=== PATIENT | male | born 1930 | race Caucasian/White ===

== ENCOUNTER 2017-03-30 10:21 | Inpatient (IN) | payer MEDICARE ==
[~2017-03-30] VITALS: Ht 182.9 cm; Wt 72.4 kg
[2017-03-30] VITALS (7 sets, daily range): BP systolic 146–189; BP diastolic 58–83; PULSE 59–70; RESP 13–16; O2SAT 96–100
--- NOTE | 2017-03-30 10:36 | ED.REPORT ---
HPI-Stroke / CVA Mar 30, 2017 ED Provider: Aga Fierro MD The pt is a 86 y/o male w/ a hx of alcoholism presenting to the ED via EMS due to a CVA. Per the daughter, the last known normal was last night. She states that he is usually walking and talking normally but experiences difficulty speaking after drinking boxed wine. The pt is experiencing word salad currently. Nursing Notes Stated Complaint: ROLL OUT CVA Chief Complaint: CVA Nursing Notes Reviewed: Yes Allergies: Coded Allergies: No Known Allergies (Unverified , 03/30/17) General Time Seen by Provider: 11:45 Chief Complaint Unable to speak ("Word salad") Hx Obtained From: Patient, Daughter Arrived By: Ambulance Time last known well "Last night" Sudden in Onset?: Yes Symptom Duration: Since onset Progression Since Onset: Constant Risk Factors TPA was considered but the pt was outside of the time frame )( TPA Administration/Criteria Stroke Thrombolytic Therapy : TPA Considered: Yes (awoke with symptoms. NIHSS scale at 3. Does not meet inclusion criteria. Discussed with pt and his daughter) TPA Administered Intravenously: No, exclusion criteria NIH Stroke Scale Level of Consciousness: Alert and responsive (0) Ask Month & Age: Both questions right (0) Open/Close Eyes/Hand Vamper: Performs both tasks (0) Horizontal EO Movements: None (0) Visual Mclain: No visual loss (0) Facial Palsy: Normal symmetry (0) Right Arm Motor Drift (10s): No drift 10 sec (0) Left Arm Motor Drift (10s): No drift 10 sec (0) Right Leg Motor Drift (5s): No drift 5 sec (0) Left Leg Motor Drift (5s): No drift 5 sec (0) Limb Ataxia FNF/Heel-Fuentes: Ataxia in 1 limb (1) Sensation (Arms/Legs/Face): No sensory loss (0) Language Aphasia: Severe, fragmented (2) Dysarthria: No dysarthria, normal (0) Extinction/Inattention: No exctinct/inattent (0) NIHSS Score: 3 Time NIHSS Performed: 13:02 Date NIHSS Performed: Mar 30, 2017 Past Medical History Past Medical History None reported daughter concerned with ETOH. significantly limited in last weeks since moving in with her Past Surgical History L hip replacement Smoking History Unknown if Ever Smoker Social History Hx of Alcoholism Review of Systems Neurologic: Reports: Unable to speak ("Word salad" ) Complete sys rev & neg: except as marked. Physical Exam Initial Vital Signs Vital Signs (First) Date Time Temp Pulse Resp B/P Pulse Ox O2 Delivery O2 Flow Rate FiO2 03/30/17 10:25 36.6 69 16 159/64 100 Room Air Initial VS: Reviewed General/Constitutional: Awake, Alert Head / Eyes: Atraumatic, Normocephalic Neck: Atraumatic, Supple, Full range of motion Respiratory / Chest: Atraumatic, Breath sounds NL, Breath sounds = bilat Cardiovascular: Heart rate NL, Regular rhythm, Heart sounds NL Speech: Positive: Expressive aphasia (Dense ), Receptive aphasia (Slight ) Tongue deviates slightly to the R and pt is able to stick tongue out The pt experiences difficutly placing finger to nose ENT: Airway patent, Mucous membranes moist Skin: No rash, Warm, Dry, Intact Interpretation & Diagnostics Lab Results Interpretation Result Diagram: 03/30/17 1045 03/30/17 1106 Test 03/30/17 10:45 03/30/17 11:06 03/30/17 11:12 03/30/17 13:38 White Blood Count 7.3th/mm3 (3.8-10.1) Red Blood Count 4.41mil/mm3 (4.40-5.80) Hemoglobin 14.0g/dL (13.8-17.2) Hematocrit 41.7% (41.0-50.0) Mean Corpuscular Volume 94.6fL (81-100) Mean Corpuscular Hemoglobin 31.7pg (27.0-35.0) Mean Corpuscular Hemoglobin Concent 33.6% (32.0-37.0) Red Cell Distribution Width 12.5% (12.3-15.4) Platelet Count 237bil/L (150-400) Neutrophils (%) (Auto) 70.7% (40-74) Lymphocytes (%) (Auto) 17.8% (14-46) Monocytes (%) (Auto) 9.5% (4-12) Eosinophils (%) (Auto) 1.4% (0-5) Basophils (%) (Auto) 0.3% (0-3) Prothrombin Time 10.5sec (8.1-12.5) Prothromb Time International Ratio 0.98ratio Sodium Level 142mEq/L (134-144) Potassium Level 4.5mEq/L (3.5-5.2) Chloride Level 104mEq/L (97-108) Carbon Dioxide Level 26mmol/L (18-29) Blood Urea Nitrogen 17mg/dL (8-27) Creatinine 1.08mg/dL (0.76-1.27) Estimat Glomerular Filtration Rate 69mL/min (>59) Glucose Level 121mg/dL (60-99) Calcium Level 9.4mg/dL (8.5-10.1) Total Bilirubin 0.5mg/dL (0.0-1.2) Aspartate Amino Transf (AST/SGOT) 18U/L (0-50) Alanine Aminotransferase (ALT/SGPT) 15U/L (0-44) Alkaline Phosphatase 57U/L (25-160) Total Protein 6.0g/dL (6.4-8.4) Albumin 4.0g/dL (3.4-5.0) Hold Urine Received (Received) Hold [place] Top Tube Received (Received) CT Head Interpretation IMPRESSION: 1. No acute intracranial process. 2. Moderate atrophy and chronic microvascular ischemic changes. Dictated by: Kita Desai M.D. on 03/30/2017 at 10:08 Approved by: Kita Desai M.D. on 03/30/2017 at 10:12 Study: Head CT no contrast Interpretation / Wet Read by: Interpret - Radiologist Re-Eval/Medical Decision Med Decision/Clinical Course 86-year-old gentleman who woke up with severe word salad this morning. Source of Hx: Old records Consultation : Call Returned at: 13:47 Table Hand: Will see patient, Agrees with plan Note: Seen by Resident. Will go to [place] team. Counseled Regarding: Diagnosis, Lab results, Need for admission Patient Discharge & Departure Impression: Primary Impression: CVA (cerebral vascular accident) CVA mechanism: unspecified Qualified Code: I63.9 - Cerebral infarction, unspecified Disposition: ADMITTED TO HOSPITAL Discharge Condition All VS Reviewed: Yes Condition: Stable Referrals: [facility] Scribe Attestation Portions of this note were transcribed by Remington An. I, Dr. Fierro personally performed the history, physical exam and medical decision-making; I reviewed and confirmed the accuracy of the information in the transcribed note. copies to: [facility] Aga Fierro MD Mar 30, 2017 10:36 Remington An Mar 30, 2017 12:51
--- NOTE | 2017-03-30 11:13 | DRSVH ---
PROCEDURE: CT BRAIN WITHOUT CONTRAST ([id number]) INDICATIONS: Stroke TECHNIQUE: Noncontrast 4.5 mm thick angled axial sections acquired from the foramen magnum to the vertex, with c oronal reformats. COMPARISON: None. FINDINGS: Image quality: Excellent. CSF spaces: Basal cisterns are patent. No extra-axial fluid collections. The ventricles are symmet eduardo in size and shape. Brain: No intracranial bleeds or masses. There is cerebral volume loss for age, with resultant vent ricular and sulcal prominence. There are periventricular and deep white matter chronic small vessel ischemic changes. There is intracranial internal carotid artery atherosclerosis. Skull and face: Calvarium and visualized facial bones appear intact, without suspicious lesions. Sinuses: Visualized sinuses and mastoids are clear. IMPRESSION: 1. No acute intracranial process. 2. Moderate atrophy and chronic microvascular ischemic changes. Dictated by: Kita Desai M.D. on 03/30/2017 at 10:08 Approved by: Kita Desai M.D. on 03/30/2017 at 10:12
[2017-03-30 11:18] LABS: BASOPHILS % (AUTO) 0.3 % (0-3); EOSINOPHILS % (AUTO) 1.4 % (0-5); MONOCYTES % (AUTO) 9.5 % (4-12); Mean Corpuscular Hemoglobin 31.7 pg (27.0-35.0); Mean Corpuscular Volume 94.6 fL (81-100); NEUTROPHILS % (AUTO) 70.7 % (40-74); Platelet Count 237 bil/L (150-400)
[2017-03-30 11:29] LABS: INR 0.98 ratio
[2017-03-30] MEDS ORDERED: Polyethylene Glycol (PEG) 17 Gm Powder PO PRN (13:50)
[2017-03-30] MEDS ORDERED: Alum-Mag Hydrox-Simeth 30 mL Suspension PO PRN (13:50)
[2017-03-30] MEDS ORDERED: Ondansetron 2 mg/mL 2 mL Inj IVPUSH PRN (13:50)
--- NOTE | 2017-03-30 14:30 | NUR ---
[place] [facility] [place] received from Stephanie Zamorano RN in ED. Pt brought up to floor via gurney, slide transferred to bed. Pt able to answer some simple questions and state name, but confused, has attempted to get out of bed but able to redirect. No s/sx of distress, admission completed by admit nurse. Providing 1:1 observation until pt assembler insulator arrives.
[2017-03-30] MEDS ORDERED: Thiamine Inj 200 MG in Dextrose 5% 50 ML IV ONE (14:35)
[2017-03-30 14:39] LABS: APPEARANCE,URINE CLEAR (CLEAR,HAZY); COLOR,URINE YELLOW (YELLOW); OCCULT BLOOD,URINE NEGATIVE (NEGATIVE); PH,URINE 5.5 (5.0-8.0); UROBILINOGEN,URINE NORMAL (NORMAL)
[2017-03-30] MEDS ORDERED: MELA1TAB16 PO (14:48)
[2017-03-30] MEDS ORDERED: TRAZ150T72 PO (14:48)
--- NOTE | 2017-03-30 15:00 | NUR ---
Pt telesales advisor arrived on floor around 15:00
[2017-03-30] MEDS ORDERED: MULT-666 PO (15:01)
[2017-03-30] MEDS ORDERED: OMEG-38 PO (15:01)
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
[2017-03-30] MEDS ORDERED: Labetalol 5 mg/mL 4 mL Inj IVPUSH PRN ×2 (15:25→15:35)
--- NOTE | 2017-03-30 15:51 | NUR ---
Evaluation completed. Please go to "Notes" then click on "Assessments and Notes" (bottom left corner of screen). Then select appropriate discipline tab on top of screen.
[2017-03-30] MEDS ORDERED: LORazepam 0.5 mg Tablet PO PRN (16:30)
[2017-03-30] MEDS: Heparin 5,000 Unit/mL Inj SUBQ SCH (17:34)
--- NOTE | 2017-03-30 18:06 | DRSVH ---
[facility] [address] [place] [address] Echocardiogram Report Name: STEPHIE HUDSON Study Date: 03/30/2017 Height: 70 in Hospital Exam Location: [facility] Weight: 164 lb Gender: Male BSA: 1.9 m2 : 1930 Age: 86 yrs BP: 146/60 mmHg Reason For Study: CVA Ordering Physician: Performed By: Madi Stone Referring Physician: JACLYN BARRIOS Interpretation Summary The left ventricle is normal in size. The ejection fraction is estimated to be 65-70%. There is no LV thrombus. The right ventricle is grossly normal size. The right ventricular systolic function is normal. There is mild mitral regurgitation. The aortic valve is mildly calcified. Leaflet mobility is mildly reduced. There is no hemodynamically significant valvular aortic stenosis.There is mild aortic regurgitation. The ascending aorta is moderately enlarged (4.3 cm in diameter). The aortic arch is mild to moderately enlarged. Procedure: A two-dimensional transthoracic echocardiogram with color flow and Doppler was performed. The study quality was technically adequate. There is no prior echocardiogram noted for this patient. The patient was in normal sinus rhythm during the exam. Left Ventricle: The left ventricle is normal in size. There is mild concentric left ventricular hypertrophy. Proximal septal thickening is noted. There is no echo evidence for significant left ventricular outflow tract obstruction. There is no thrombus. The ejection fraction is estimated to be 65-70%. There are no focal wall motion abnormalities. Assessment of diastolic parameters indicates a relaxation abnormality of the left ventricle, consistent with normal filling pressures. Right Ventricle: The right ventricle is grossly normal size. The right ventricular systolic function is normal. Atria: The left atrium grossly appears normal in size. The right atrium grossly appears normal in size. The interatrial septum is intact with no evidence for an atrial septal defect. Mitral Valve: The mitral valve leaflets are slightly calcified. There is mild mitral annular calcification. There is mild mitral regurgitation. Aortic Valve: The aortic valve is trileaflet. The aortic valve is mildly calcified. There is discrete nodular thickening of the non- coronary cusp. Leaflet mobility is mildly reduced. There is no hemodynamically significant valvular aortic stenosis. There is mild aortic regurgitation. Tricuspid Valve: The tricuspid valve is not well visualized, but is grossly normal. Pulmonary artery pressures cannot be estimated because of the lack of a measurable TR jet velocity. There is trace tricuspid regurgitation. Pulmonic Valve: The pulmonic valve is not well seen, but is grossly normal. There is trace pulmonic regurgitation. Great Vessels: The aortic root is mildly dilated. The ascending aorta is moderately enlarged. The aortic arch is moderately enlarged. The pulmonary artery is normal size. The IVC is of normal diameter and collapses greater than 50% with a sniff. This suggests a low right atrial pressure of 3 mm Hg. Pericardium/ Pleura There is no pericardial effusion. There is no pleural effusion. MMode/2D Measurements & Calculations LVIDd LVOT diam: 2.0 cm LV tejada. diameter/BSA LV sys. diameter/BSA : 4.4 cm AoV Openin.1 cm (cm/m^2): 2.3 (cm/m^2): 1.3 LVIDs Ao root diam: 3.9 cm : 2.5 cm asc Aorta Diam FS : 43.% Ao Arch Diam (Prox IVSd Trans): 2.8 cm : 1.cm LVPWd : 1.0 cm Doppler Measurements & Calculations Ao V2 max: 136.9 cm/secMV E max per MV E/A: 0.75 PA V2 max Ao max P.5 mmHg : 55.0 cm/sec Med Peak E' Per : 112.9 cm/sec Ao mean P.4 mmHg MV A max per PA mean PG LVOT Max Per : 73.7 cm/sec E/E' med: 9.7 : 3.2 mmHg : 107.0 cm/sec Lat Peak E' Per NATTY(I,D): 2.6 cm E/E' lat: 8.2 sev ratio: 0.84 E/e' average: 9.0 MV dec time: 0.27 sec Ao V2 mean LV V1 max PG PA V2 mean : 100.8 cm/sec : 86.7 cm/sec Ao V2 VTI: 28.8 cmLV V1 VTI: 24.1 cm NATTY(V,D): 2.5 cm2 NATTY indexed to BSA (cm^2/m^2): 1.4 Reading Physician:YONATHAN
--- NOTE | 2017-03-30 18:24 | NUR ---
Pt off floor for MRI
--- NOTE | 2017-03-30 19:56 | DRSVH ---
PROCEDURE: MRI BRAIN WITHOUT CONTRAST ([id number]) INDICATIONS: cva TECHNIQUE: Non-contrast axial T1 spin echo, axial T2 fast spin echo, sagittal and axial FLAIR, coronal T2 fast s pin echo, axial gradient echo, axial diffusion and ADC through the brain. COMPARISON: [facility], MR, MR ANGIO HEAD WO [facility], 03/30/2017, 18:19. [facility], CT, CT BRAIN WO [facility], 03/30/2017, 10:52. FINDINGS: Image quality: Significantly degraded by persistent patient motion during image acquisition. CSF spaces: Ventricles appear symmetric in size and shape. Basal cisterns are patent. No extra-axi al fluid collections. Brain: No intracranial bleeds or mass effects. There is cerebral volume loss for age. There are pe riventricular and deep white matter chronic small vessel ischemic changes. Brainstem appears normal. Diffusion-weighted images show no acute ischemic insults. No chronic ischemic insults. Normal int ravascular flow voids are present. Skull and face: Calvarial bone marrow is normal in signal. Orbits are normal. Sinuses: Sinuses and mastoids are clear. IMPRESSION: Moderate brain parenchymal atrophy, quality of visualization is quite limited by persist ent patient motion during image acquisition. No stroke found, no mass seen, no obstructive hydroceph alus suspected. Dictated by: Dong Garcia M.D. on 03/30/2017 at 19:53 Approved by: Dong Garcia M.D. on 03/30/2017 at 19:54
--- NOTE | 2017-03-30 19:57 | DRSVH ---
PROCEDURE: MRA ANGIOGRAM HEAD WITHOUT CONTRAST ([id number]) INDICATIONS: CVA TECHNIQUE: Noncontrast axial 3-D [id number] MR angiogram, with 3-dimensional maximum intensity projection (M IP) reformats of the internal carotid arteries and posterior circulation then performed. COMPARISON: [facility], MR, MR BRAIN WO CON, 03/30/2017, 18:19. [facility], CT, CT BRAIN WO CON, 03/30/2017, 10:52. FINDINGS: Image quality: Quality of visualization is significantly degraded by persistent patient motion durin g image acquisition. Anterior circulation: Intracranial internal carotid arteries demonstrate normal size and intralumina l flow signal. The flow within the paired anterior cerebral arteries is normal and symmetric. The f low within the middle cerebral arteries is normal and symmetric. The anterior communicating artery i s seen. No stenoses, occlusions, or aneurysms. Posterior circulation: Visualized portions of the vertebral arteries demonstrate normal caliber, and join to form a normal appearing basilar artery. The flow within the posterior cerebral arteries is normal and symmetric. No stenoses, occlusions, or aneurysms. IMPRESSION: Patient motion degrades quality of visualization but within the constraints of this stud y no definite acute disease is found. Dictated by: Dong Garcia M.D. on 03/30/2017 at 19:54 Approved by: Dong Garcia M.D. on 03/30/2017 at 19:55
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
[2017-03-31] VITALS (8 sets, daily range): BP systolic 145–187; BP diastolic 56–86; PULSE 51–76; RESP 16; O2SAT 94–98
--- NOTE | 2017-03-31 00:21 | NUR ---
Non-Violent Restraints / POA On return from MRI patient incontinent and attempting to climb out of bed during brief change. Attempts to orient to place unsuccessful however able to state name and date of . Some responses to questions were unintelligible and attempts to calm by family and staff unsuccessful. Two GM VIDEO's and daughter required to restrain and keep in bed during linen change and daughter accepting of placing 2 point soft restraints. Notified MD and received order for 2 point soft wrist restraints, sitter in room to keep patient from self harm. Seizure pads in place. Daughter presented documentation as primary POA, a copy was made and given to charge nurse at 's desk.
[2017-03-31] MEDS: Heparin 5,000 Unit/mL Inj SUBQ SCH ×3 (00:30→16:08)
[2017-03-31] MEDS: Multivit-Miner-Folic Acid-Iron Tablet PO SCH (07:47)
[2017-03-31] MEDS: Thiamine Inj 100 MG in Dextrose 5% 50 ML IV SCH (07:47)
--- NOTE | 2017-03-31 17:22 | NUR ---
Social Work: Brief Note Data: Pt is on day 1 of hospitalization. EMR reviewed, pt discussed in multidisciplinary rounds. Pt has hx of alcohol use and was in restraints and had a sitter this AM. Pt continues to have a sitter. MECHANICAL LEAD met with pt and granddaughter at bedside. Pt states his name and birthday correctly, is unaware of which hospital he is at, and states it is 1999. Pt then began to talk about wanting to go back to the [place] where he used to live, and pt's granddaughter shook her head no at MECHANICAL LEAD. Pt states his daughter Sabina is a good support person to contact if needed, phone number is [phone]. MECHANICAL LEAD will attempt to call pt's daughter to complete assessment and will follow up with pt once more clear. PT recommending HH with 24/7 caregiving at this time. MECHANICAL LEAD will continue to follow. Assessment: Pt who is independent at baseline, alcohol use. Plan: MECHANICAL LEAD will attempt to call pt's daughter to complete assessment and will follow up with pt once more clear. PT recommending HH with 24/7 caregiving at this time. MECHANICAL LEAD will continue to follow. PANCHO Cantu
--- NOTE | 2017-03-31 17:38 | NUR ---
Mentation Confusion and word salad continue. Following conversation better as well as following commands. Sitter remains at bedside this shift.
--- NOTE | 2017-03-31 19:10 | NUR ---
KANDACE explained to pt's daughter Sabina who is at bedside. Copy of KANDACE given to aSbina after she had signed it.
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
[2017-04-01] VITALS (10 sets, daily range): BP systolic 149–192; BP diastolic 64–88; PULSE 54–140; RESP 16–18; O2SAT 95–100
[2017-04-01] MEDS: Heparin 5,000 Unit/mL Inj SUBQ SCH ×3 (00:59→16:01)
[2017-04-01] MEDS ORDERED: Nitroglycerin 2% 1 Gm Ointment TOPICAL ONE (05:05)
--- NOTE | 2017-04-01 06:21 | NUR ---
NOC PT remains confused. Oriented only to self. PT continues to remain aphasic and does some word searching. Otherwise, neuro intact. PT ambulates to bathroom with supervision. PT is also incontinent of urine at times. PT b/p has been elevated this shift with a max of 191/80. Amlodipine was given earlier with no effect and then nitro paste applied and decreased b/p into the 150's. PT asymptomatic. NO CP. HR sinus desiree to sinus rhythm. Psyche consult ordered. Nicotine patch applied. Will CTM b/p at this time. Sitter present at bedside. PT has made minimal attempts to get OOB and xaviery sitter can be d/c today.
--- NOTE | 2017-04-01 07:20 | NUR ---
DC sitter Patient had a sitter at bedside throughout the night. Patient was cooperative throughout the night. Nurse discontinued sitter at 0720 on 04/01/17. Morris alarm placed on bed and turned on.
[2017-04-01] MEDS: Multivit-Miner-Folic Acid-Iron Tablet PO SCH (08:44)
[2017-04-01] MEDS: Thiamine Inj 100 MG in Dextrose 5% 50 ML IV SCH (09:20)
--- NOTE | 2017-04-01 13:43 | NUR ---
A-Flutter Patient on telemetry. Per groundwater monitoring technician patient heart rate increased to 120's to 140's and has converted to A-Flutter. notified.
--- NOTE | 2017-04-01 14:29 | NUR ---
Physical Therapy: Patient has met all PT goals and will be released to nursing for continued ambulation with FWW and SBA as tolerated 2-3 times per day.
--- NOTE | 2017-04-01 15:30 | PCM.PNMED ---
Subjective Date of Service Apr 01, 2017 Subjective Patient is seen and examined. He continues to go off tangent occasionally but fairly interactive. Once again, his daughter Sabina visited and he became more agitated. Afib w/ RVR at 140 HR is reported by tele around noon. He is clearly refusing to go home with her. He will need placement. Exam Vital Signs Vital Sign - Last Date Time Temp Pulse Resp B/P Pulse Ox O2 Delivery O2 Flow Rate FiO2 04/01/17 14:04 36.8 105 16 165/64 97 Room Air Intake and Output 03/31/17 03/31/17 04/01/17 Cumulative From/Thru 15:00 23:00 07:00 03/30/17 10:25 - 04/01/17 06:39 Intake Total 70 ml 860 ml 439 ml 1512 ml Output Total 400 ml 1300 ml Balance 70 ml 860 ml 39 ml 212 ml Intake Oral 860 ml 439 ml 1399 ml IV Total 70 ml 113 ml Output Urine Total 400 ml 1300 ml # Voids 6 4 17 # Bowel Movements 2 4 Exam General: Calm until daughter Sabina came HEENT: no teeth Heart: Tachycardic, irregular rate Lungs: CTA, no crackles or wheezes Abd: Soft, non tendere Ext: no swelling MSK: walks with wide based gait Neuro: positive for nystagmus, wide based gait/ataxia. Still somewhat confused PSych: Mildly agitated upon seeing daughter IVs and Medications Medications Reviewed: Medications were reviewed in detail Lab and Diagnostics Result Diagram: 03/30/17 1045 03/30/17 1106 X-Rays, CTs and MRIs CT BRAIN WITHOUT CONTRAST IMPRESSION: 1. No acute intracranial process. 2. Moderate atrophy and chronic microvascular ischemic changes. Approved by: Kita Desai M.D. on 03/30/2017 at 10:12 MRA ANGIOGRAM HEAD WITHOUT CONTRAST IMPRESSION: Patient motion degrades quality of visualization but within the constraints of this study no definite acute disease is found. Approved by: Dong Garcia M.D. on 03/30/2017 at 19:55 MRI BRAIN WITHOUT CONTRAST IMPRESSION: Moderate brain parenchymal atrophy, quality of visualization is quite limited by persistent patient motion during image acquisition. No stroke found, no mass seen, no obstructive hydrocephalus suspected. Dictated by: Dong Garcia M.D. on 03/30/2017 at 19:53 Assessment & Plan Mr. Pedro Barrera is an 86 year old gentleman with a past medical history of Hypertension on no medications, recent alcoholism and presumed dementia presenting to the [facility] ED by way of EMS when daughter, Sabina noticed patient was displaying global expressive aphasia this morning. 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 Active. - Initially, TPA considered in the ED due to concern for a stroke, however event was out side of time frame. CT as above. - MR stroke protocol. Showed no concern for stroke - O2 on, titrate to 92% saturations. - EKG reviewed, NSR. Tele on . - 81 mg aspirin daily - pravastatin 10 mg QD based on lipid panel - A1c shows he is not a diabetic - NIH score of 3 on admission. Continue Q4H neuro checks, - Swallow screen ordered. Dysphagia diet with thin liquids are recommended PT evaluation ordered. - Echocardiogram is ordered and showed 65-70% ejection fraction, as well as lipid panel (chol= 172 triglycerides 86 LDL 106 HDL 48 and A1c 6.0. -Based on patient's cardiac risk profile, we will initiate pravastatin 10 mg daily at bedtime. 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 He agrees with vitamin infusions, we appreciate his time and recommendations - We will plan to give IV thiamine infusions per uptodate: "A recommended regimen is 500 mg of thiamine intravenously, infused over 30 minutes, three times daily for two consecutive days and 250 mg intravenously or intramuscularly once daily for an additional five days, in combination with other B vitamins Administration of glucose without thiamine can precipitate or worsen WE; thus, thiamine should be administered before glucose. Because gastrointestinal absorption of thiamine is erratic in alcoholic and malnourished patients, oral administration of thiamine is an unreliable initial treatment for WE. High-dose parenteral thiamine therapy is justified based on the failure of lower doses to produce clinical improvement in some patients with " -- Pharmacy is contacted regarding B complex vit, they are saying nephrovites are the only option. These will be ordered in addition to thiamine infusions. Recent history of Alcohol dependance. - Thiamine given. - CIWA protocol ordered. Valium for ciwa score of greater than 8 - Seizure protocol ordered. EEG is performed today, result is pending - CD assessment with Case management. Chronic conditions. Insomnia - Holding home trazodone and Melatonin. Hypertension, chronic unknown level of control -- Patient will be started on chlorthalidone 12.5 mg daily Acetaminophen for mild pain when necessary. Bowel regimen Senna and MiraLAX scheduled and PRN. Zofran when necessary for nausea and vomiting. SubQ heparin for now. SCDs in place. High-risk medications: NONE. Social: Daughter states she has DPOA paperwork which she will bring in, and would like to make out a POLST, with DNR/DNI designation. Patient uses a cane for walking. Patient Status: Patient is admitted under inpatient status with expected length of stay greater than 2 midnights due to severity of presenting symptoms, risk of adverse event, and complexity of treatment plan. I will obtain consult for placement as he is clearly not wanting to go home with Sabina VTE Mechanical Devices: Intermittant Pneumatic CD Resuscitation Status: DNR/DNI:Do Not Resuscitate/Intubate Time spent 35 min Ana Head DO Apr 01, 2017 15:30
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
--- NOTE | 2017-04-01 17:33 | CONS ---
[address] [address] CONSULTATION REPORT PATIENT: STEPHIE HUDSON : 1930 MR#: [id number] ADMIT: 03/30/2017 JOB ID: [id number] DATE OF SERVICE: 04/01/2017 CONTINUATION: In addition to high-dose thiamine, some studies have suggested supplemental magnesium 10-30 mEq per day, potassium 60-180 mEq per day, and phosphate 10 to 40 mmol per day. Magnesium is thought to be an important cofactor in thiamine dependent enzyme function especially involving carbohydrate metabolism and in the presence of hypomagnesemia the patient response may be limited despite receiving parental thiamine. I would also recommend multivitamin IV with continue monitoring for any fluid or electrolyte losses, although his lab work is otherwise unremarkable. I would recommend regular lab work to monitor electrolytes as well as renal function. In the [place] an intravenous high-potency solution is available, Pabrinex, the active ingredients of which are thiamine hydrochloride 250 mg, riboflavin 4 mg, pyridoxine hydrochloride 50 mg, ascorbic acid 500 mg, nicotinamide 160 mg, and anhydrous glucose 1 g; thiamine being vitamin B1, riboflavin vitamin B2, the pyridoxine being vitamin B6, ascorbic acid being vitamin C, and nicotinamide being vitamin B3.
--- NOTE | 2017-04-01 17:45 | NUR ---
Sitter Patient increasingly became restless. Patient continued to be impulsive and not understanding to use call light for assistance. Patient has river alarm on bed and patient continued to get up to bathroom by himself and not wait for assistance. Patient is unsteady on feet and a high fall risk. Patient was setting off River alarm every minute and sitter was placed at bedside for safety.
[2017-04-01] MEDS: Thiamine Inj 500 MG in Dextrose 5% 50 ML IV SCH (20:18)
[2017-04-02] VITALS (10 sets, daily range): BP systolic 134–183; BP diastolic 71–77; PULSE 61–82; RESP 16–18; O2SAT 96–98
[2017-04-02] MEDS: Heparin 5,000 Unit/mL Inj SUBQ SCH ×3 (00:31→15:45)
--- NOTE | 2017-04-02 06:41 | NUR ---
Activity Pt alert to self and location. Impulsive. Doesn't use call light. Appears confused when bed alarm goes off. Easily reoriented and distracted back to bed. 1:1 sitter provided.
[2017-04-02] MEDS: Multivit-Miner-Folic Acid-Iron Tablet PO SCH (07:54)
[2017-04-02] MEDS: Thiamine Inj 500 MG in Dextrose 5% 50 ML IV SCH ×3 (07:54→20:47)
[2017-04-02] MEDS: Vitamin B Complex/Vit C Tablet PO SCH (07:54)
[2017-04-02 08:45] LABS: Magnesium 1.9 mg/dL (1.6-2.6); Phosphorus 3.2 mg/dL (2.5-4.9)
--- NOTE | 2017-04-02 13:05 | NUR ---
Case Management: D: Phone signature for MARCE obtained from Daughter Sabina. Inpatient status effective yesterday, 04/01/17
--- NOTE | 2017-04-02 15:27 | NUR ---
Evaluation completed. Please go to "Notes" then click on "Assessments and Notes" (bottom left corner of screen). Then select appropriate discipline tab on top of screen.
--- NOTE | 2017-04-02 16:13 | NUR ---
Daily update Patient alert and confused. Patient requires SBA with FWW due to unsteady gait, but patient is impulsive and does not remember to press the call light for assistance. Patient does become agitated when carleen alarm, alarms. Patient has a sitter at bedside for safety. Patient is incontinent at times of urine, but will walk to toilet to void as well. Patient has had two bowel movements today that were formed. HR has stayed SR today. Bed locked with call light with in reach.
--- NOTE | 2017-04-02 16:50 | PCM.PNMED ---
Subjective Date of Service Apr 02, 2017 Subjective Patient is doing well with the one-on-one sitter. Staff mentioned that patient remains confused, had 2 bowel movements, no problems with urination. Exam Vital Signs Vital Sign - Last Date Time Temp Pulse Resp B/P Pulse Ox O2 Delivery O2 Flow Rate FiO2 04/02/17 16:12 37.0 63 16 146/74 96 Room Air Intake and Output 04/01/17 04/01/17 04/02/17 Cumulative From/Thru 15:00 23:00 07:00 03/30/17 10:25 - 04/02/17 06:17 Intake Total 1712 ml 236 ml 3460 ml Output Total 600 ml 325 ml 2225 ml Balance 1112 ml -89 ml 1235 ml Intake Oral 1510 ml 236 ml 3145 ml IV Total 202 ml 315 ml Output Urine Total 600 ml 325 ml 2225 ml # Voids 8 3 28 # Bowel Movements 0 4 Exam General: Calm HEENT: no teeth Heart: Regular rate and rhythm Lungs: CTA, no crackles or wheezes Abd: Soft, non tendere Ext: no swelling MSK: walks with wide based gait Neuro: Still somewhat confused PSych: Negative for anxiety and agitation Lab and Diagnostics Result Diagram: 03/30/17 1045 04/02/17 0720 X-Rays, CTs and MRIs CT BRAIN WITHOUT CONTRAST IMPRESSION: 1. No acute intracranial process. 2. Moderate atrophy and chronic microvascular ischemic changes. Approved by: Kita Desai M.D. on 03/30/2017 at 10:12 MRA ANGIOGRAM HEAD WITHOUT CONTRAST IMPRESSION: Patient motion degrades quality of visualization but within the constraints of this study no definite acute disease is found. Approved by: Dong Garcia M.D. on 03/30/2017 at 19:55 MRI BRAIN WITHOUT CONTRAST IMPRESSION: Moderate brain parenchymal atrophy, quality of visualization is quite limited by persistent patient motion during image acquisition. No stroke found, no mass seen, no obstructive hydrocephalus suspected. Dictated by: Dong Garcia M.D. on 03/30/2017 at 19:53 Assessment & Plan Mr. Pedro Barrera is an 86 year old gentleman with a past medical history of Hypertension on no medications, recent alcoholism and presumed dementia presenting to the [facility] ED by way of EMS when daughter, Sabina noticed patient was displaying global expressive aphasia this morning. 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 Active. - Initially, TPA considered in the ED due to concern for a stroke, however event was out side of time frame. CT as above. - MR stroke protocol. Showed no concern for stroke - O2 on, titrate to 92% saturations. - EKG reviewed, NSR. Tele on . - 81 mg aspirin daily - pravastatin 10 mg QD based on lipid panel - A1c shows he is not a diabetic - NIH score of 3 on admission. Continue Q4H neuro checks, - Swallow screen ordered. Dysphagia diet with thin liquids are recommended PT evaluation ordered. - Echocardiogram is ordered and showed 65-70% ejection fraction, as well as lipid panel (chol= 172 triglycerides 86 LDL 106 HDL 48 and A1c 6.0. -Based on patient's cardiac risk profile, we will initiate pravastatin 10 mg daily at bedtime. 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 He agrees with vitamin infusions, we appreciate his time and recommendations - We will plan to give IV thiamine infusions per uptodate: "A recommended regimen is 500 mg of thiamine intravenously, infused over 30 minutes, three times daily for two consecutive days and 250 mg intravenously or intramuscularly once daily for an additional five days, in combination with other B vitamins Administration of glucose without thiamine can precipitate or worsen WE; thus, thiamine should be administered before glucose. Because gastrointestinal absorption of thiamine is erratic in alcoholic and malnourished patients, oral administration of thiamine is an unreliable initial treatment for WE. High-dose parenteral thiamine therapy is justified based on the failure of lower doses to produce clinical improvement in some patients with " -- Pharmacy is contacted regarding B complex vit, they are saying nephrovites are the only option. These will be ordered in addition to thiamine infusions. -- Reviewed records from [facility], that daughter has brought in. Patient was apparently on hydrochlorothiazide valsartan combo pill 20 - 100 mg daily prior to arriving at the ED. It is unclear if he ever actually picked up the prescription and use the medication. Recent history of Alcohol dependance. - Thiamine given. - CIWA protocol ordered. Valium for ciwa score of greater than 8 - Seizure protocol ordered. EEG is performed today, result is pending - CD assessment with Case management. Chronic conditions. Insomnia - Holding home trazodone and Melatonin. Hypertension, chronic unknown level of control -- Patient will be started on chlorthalidone 12.5 mg daily Acetaminophen for mild pain when necessary. Bowel regimen Senna and MiraLAX scheduled and PRN. Zofran when necessary for nausea and vomiting. SubQ heparin for now. SCDs in place. High-risk medications: NONE. Social: Daughter states she has DPOA paperwork which she will bring in, and would like to make out a POLST, with DNR/DNI designation. Patient uses a cane for walking. Patient Status: Patient is admitted under inpatient status with expected length of stay greater than 2 midnights due to severity of presenting symptoms, risk of adverse event, and complexity of treatment plan. I will obtain consult for placement as he is clearly not wanting to go home with Sabina. Dr. Muhammad is the POA. Several relatives attempted to call on behalf of patient's son, , patient is unable to make a decision as he is encephalopathic. Apparently the son has lived off of patient's money LIFE and has not taken care of the patient, patient is unable to tell me if he would like for his son to be involved in his care. We suggested to his son that any questions should be routed to Dr. Muhammad VTE Mechanical Devices: Intermittant Pneumatic CD Resuscitation Status: DNR/DNI:Do Not Resuscitate/Intubate Time spent 25 minutes Ana Head DO Apr 02, 2017 16:46
[2017-04-03] VITALS (9 sets, daily range): BP systolic 122–163; BP diastolic 56–81; PULSE 46–64; RESP 15–17; O2SAT 94–99
[2017-04-03] MEDS: Heparin 5,000 Unit/mL Inj SUBQ SCH ×3 (00:19→17:33)
--- NOTE | 2017-04-03 05:54 | NUR ---
Bradycardia Tele report HR down to 37 briefly then back to low 40s,SR. Pt asymptomatic and sleeping. Dr. Dozier informed. No order given at this time. Continue monitoring. Addendum: 04/03/17 at 0629 by RYAN ALBERT RN Tele report at 0616: within 30min SR 2nd AVB 37-low 40sx1 for 2min, in and out a-flutter 60sx3, last 6.5min at most, now SR 50S 60S asymptomatic. Dr. Dozier paged at 0625 and call back: prn Atropine ordered if bradycardia sustains or symptomatic.
[2017-04-03] MEDS ORDERED: Atropine 1 mg/10 mL (Code) Syringe IVPUSH PRN (06:30)
[2017-04-03 07:35] LABS: Magnesium 1.8 mg/dL (1.6-2.6); Phosphorus 3.8 mg/dL (2.5-4.9)
[2017-04-03] MEDS: Multivit-Miner-Folic Acid-Iron Tablet PO SCH (09:24)
[2017-04-03] MEDS: Vitamin B Complex/Vit C Tablet PO SCH (09:26)
[2017-04-03 09:30] LABS: TROPONIN T 0.01 ug/L (0.0-0.011)
[2017-04-03] MEDS ORDERED: 0.9% Sodium Chloride 250 ML ONE (09:33)
[2017-04-03] MEDS: Thiamine Inj 500 MG in Dextrose 5% 50 ML IV SCH ×2 (09:39→14:50)
[2017-04-03 09:41] LABS: Magnesium 1.8 mg/dL (1.6-2.6)
--- NOTE | 2017-04-03 14:10 | NUR ---
Social Work-continued d/c planning: Data:EMR reviewed. Pt is on day 4 of hospitalization for CVA per H&P. Pt is not medically stable anticipate 1-2 more days. MD order received for SNF. ST recommending SNF, PT cleared pt for home with 24/7 care. ALEX placed a call to daughter Sabina to discuss SNF, no answer awaiting a return call. Pt's insurance only contracts with [facility] and [facility] for SNF placement. SW to await a call back from daughter to discuss further. ALEX will continue to follow. Assessment:Pt who would benefit from SNF. Plan:ALEX has left message for daughter to discuss SNF, awaiting a return call. order has been received. ALEX will continue to follow. PANCHO Crowder Addendum: 04/03/17 at 1436 by MUKUL CARLSON SS SW received a call back from daughter. ALEX explained recommendation of SNF. Daughter states she is working with an outside company to help place her dad in an AFH. ALEX explained recommendation of SNF and two facilities that are contracted. ALEX explained this could be explored and that insurance would either approve or deny SNF. ALEX explained that daughter can continue to work on AFH placement also. Daughter would like a referral to [facility]. ALEX faxed over [employer] and [employer] and provided access in [employer]. ALEX will continue to follow. PANCHO Crowder
--- NOTE | 2017-04-03 15:11 | NUR ---
ALEX received a call back from Leticia at [facility] they would like to have Beronica complete onsight tomorrow morning. PANCHO Crowder
--- NOTE | 2017-04-03 18:30 | NUR ---
Mentation Patient continues to be confused and requires frequent redirection. Patient will suddenly exit from bed and does not respond to bed alarm, or staff telling him to "stop or wait", but continues to the bathroom. Patient is noted to have an unsteady gait and has had recent falls prior to admission. Patient is oriented to self only. He repeatedly thinks he is in "[place]". When reoriented to [place], [place]. Patient replies, "[place] [facility] [place] "I have been in [place] for over a week or so". Patient also confused about identity of family members he talks to on the phone.
[2017-04-03] MEDS: DEXTROSE 5% IV SCH (21:02)
[2017-04-03] MEDS: THIAMINE IV SCH (21:02)
--- NOTE | 2017-04-03 21:16 | PCM.PNMED ---
Subjective Date of Service Apr 03, 2017 Subjective Patient is seen and examined. He appears calm. No new complaints Exam Vital Signs Vital Sign - Last Date Time Temp Pulse Resp B/P Pulse Ox O2 Delivery O2 Flow Rate FiO2 04/03/17 08:55 57 04/03/17 06:23 36.4 16 163/81 99 Room Air Intake and Output 04/02/17 04/02/17 04/03/17 Cumulative From/Thru 15:00 23:00 07:00 03/30/17 10:25 - 04/03/17 06:43 Intake Total 1112 ml 172 ml 4744 ml Output Total 1025 ml 400 ml 3650 ml Balance 87 ml -228 ml 1094 ml Intake Oral 992 ml 100 ml 4237 ml IV Total 120 ml 72 ml 507 ml Output Urine Total 1025 ml 400 ml 3650 ml # Voids 6 34 # Bowel Movements 2 1 7 Exam General: Calm HEENT: no teeth Heart: Regular rate and rhythm Lungs: CTA, no crackles or wheezes Abd: Soft, non tender Ext: no swelling MSK: walks with wide based gait Neuro: Still somewhat confused PSych: Negative for anxiety and agitation IVs and Medications Medications Reviewed: Medications were reviewed in detail Lab and Diagnostics Result Diagram: 03/30/17 1045 04/03/17 0630 X-Rays, CTs and MRIs CT BRAIN WITHOUT CONTRAST IMPRESSION: 1. No acute intracranial process. 2. Moderate atrophy and chronic microvascular ischemic changes. Approved by: Kita Desai M.D. on 03/30/2017 at 10:12 MRA ANGIOGRAM HEAD WITHOUT CONTRAST IMPRESSION: Patient motion degrades quality of visualization but within the constraints of this study no definite acute disease is found. Approved by: Dong Garcia M.D. on 03/30/2017 at 19:55 MRI BRAIN WITHOUT CONTRAST IMPRESSION: Moderate brain parenchymal atrophy, quality of visualization is quite limited by persistent patient motion during image acquisition. No stroke found, no mass seen, no obstructive hydrocephalus suspected. Dictated by: Dong Garcia M.D. on 03/30/2017 at 19:53 Assessment & Plan Mr. Pedro Barrera is an 86 year old gentleman with a past medical history of Hypertension on no medications, recent alcoholism and presumed dementia presenting to the [facility] ED by way of EMS when daughter, Sabina damico patient was displaying global expressive aphasia this morning. Second-degree AV block reported a.m. of 04/03 -- Patient experienced a brief episode of A. fib on 04/02, he was put on metoprolol 25 mg by mouth twice a day -- On 04/03 am, patient was reported to have few minutes of second-degree AV block -- Cardiology is consulted -- Metoprolol dose is reduced to 12.5. dr. 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 Active. - Initially, TPA considered in the ED due to concern for a stroke, however event was out side of time frame. CT as above. - MR stroke protocol. Showed no concern for stroke - O2 on, titrate to 92% saturations. - EKG reviewed, NSR. Tele on . - 81 mg aspirin daily - pravastatin 10 mg QD based on lipid panel - A1c shows he is not a diabetic - NIH score of 3 on admission. Continue Q4H neuro checks, - Swallow screen ordered. Dysphagia diet with thin liquids are recommended PT evaluation ordered. - Echocardiogram is ordered and showed 65-70% ejection fraction, as well as lipid panel (chol= 172 triglycerides 86 LDL 106 HDL 48 and A1c 6.0. -Based on patient's cardiac risk profile, we will initiate pravastatin 10 mg daily at bedtime. 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 He agrees with vitamin infusions, we appreciate his time and recommendations - We will plan to give IV thiamine infusions per uptodate: "A recommended regimen is 500 mg of thiamine intravenously, infused over 30 minutes, three times daily for two consecutive days and 250 mg intravenously or intramuscularly once daily for an additional five days, in combination with other B vitamins Administration of glucose without thiamine can precipitate or worsen WE; thus, thiamine should be administered before glucose. Because gastrointestinal absorption of thiamine is erratic in alcoholic and malnourished patients, oral administration of thiamine is an unreliable initial treatment for WE. High-dose parenteral thiamine therapy is justified based on the failure of lower doses to produce clinical improvement in some patients with " -- Pharmacy is contacted regarding B complex vit, they are saying nephrovites are the only option. These will be ordered in addition to thiamine infusions. -- Social work consult for fdc placement is placed. Recent history of Alcohol dependance. - Thiamine given. - CIWA protocol ordered. Valium for ciwa score of greater than 8 - Seizure protocol ordered. EEG is performed today, result is pending - CD assessment with Case management. Chronic conditions. Insomnia - Holding home trazodone and Melatonin. Hypertension, chronic unknown level of control -- Patient will be started on chlorthalidone 12.5 mg daily -- -- Reviewed records from [facility], that daughter has brought in. Patient was apparently on hydrochlorothiazide valsartan combo pill 20 - 100 mg daily prior to arriving at the ED. It is unclear if he ever actually picked up the prescription and use the medication. Acetaminophen for mild pain when necessary. Bowel regimen Senna and MiraLAX scheduled and PRN. Zofran when necessary for nausea and vomiting. SubQ heparin for now. SCDs in place. High-risk medications: NONE. Social: Daughter states she has DPOA paperwork which she will bring in, and would like to make out a POLST, with DNR/DNI designation. Patient uses a cane for walking. Patient Status: Patient is admitted under inpatient status with expected length of stay greater than 2 midnights due to severity of presenting symptoms, risk of adverse event, and complexity of treatment plan. I will obtain consult for placement as he is clearly not wanting to go home with Sabina. Dr. Muhammad is the POA. Several relatives attempted to call on behalf of patient's son, , patient is unable to make a decision as he is encephalopathic. Apparently the son has lived off of patient's money and has not taken care of the patient, patient is unable to tell me if he would like for his son to be involved in his care. We suggested to his son that any questions should be routed to Dr. Muhammad VTE Mechanical Devices: Intermittant Pneumatic CD Resuscitation Status: DNR/DNI:Do Not Resuscitate/Intubate Time spent 25 minutes Ana Head DO Apr 03, 2017 09:58
[2017-04-04] VITALS (7 sets, daily range): BP systolic 136–150; BP diastolic 68–81; PULSE 51–85; RESP 17–18; O2SAT 96–98
[2017-04-04] MEDS: Heparin 5,000 Unit/mL Inj SUBQ SCH ×3 (01:23→16:30)
--- NOTE | 2017-04-04 06:02 | NUR ---
Neuro stable Patient alert and moderately confused, oriented to self and [place] President only. Frequently reorient pt. Impulsive, get OOB quickly without using call light,unsteady gait, high risk of fall, carleen alarm on, sitter in room. No focal neuro deficit noted: no facial droop noted, no speech abnormality noted, tongue midline, strength equally strong at all extremities, sensation intact. No s/s alcohol withdrawal, no hand tremor. CIWA score 3.
[2017-04-04] MEDS: Multivit-Miner-Folic Acid-Iron Tablet PO SCH (09:24)
[2017-04-04] MEDS: Vitamin B Complex/Vit C Tablet PO SCH (09:25)
--- NOTE | 2017-04-04 12:07 | NUR ---
[facility] has declined pt. Jacqueline Draper,[employer] MANAGEMENT RECRUITER
--- NOTE | 2017-04-04 12:11 | NUR ---
MARCE verbally signed with Daughter Sabina via phone. PANCHO Crowder
--- NOTE | 2017-04-04 12:42 | NUR ---
Social Work-continued d/c planning: Data:EMR Reviewed. Pt is on day 5 of hospitalization for CVA per H&P. PT has seen pt and recommended home with 13/03 care, ST recommending SNF. SW received denial from [facility]. ALEX called daughter Sabina to discuss pt. Sabina is agreeable to referral to [facility]. ALEX called [employer] and provided access in [employer] for review, faxed facesheet. ALEX also received a call from Patrica [phone] who is working with family on jail care placement. Patrica states she is working with family on AFH post rehab. PASRR and paperwork in the chart. SW will continue to follow. Assessment:Pt who would benefit from SNF. Plan:Referral has been sent to [facility]. Insurance authorization will need to be obtained. PASRR and paperwork in the chart. SW will continue to follow. PANCHO Crowder
--- NOTE | 2017-04-04 19:51 | NUR ---
Mentation Patient alert to self, cooperative, but impulsive and confused with an unsteady gait. Patient this morning said he was in "[place]", the president was "Poncho" and it was June 2007. This afternoon, patient knew he was in the hospital, thought he was in "[place]", the president was "Julieta Rendon", and did not know the date. Addendum: 04/04/17 at 7 by CHERYL BRUMFIELD RN Patient up with sitter using front wheeled walker in hallway. Gait unsteady. Patient able to follow directions.
[2017-04-04] MEDS: DEXTROSE 5% IV SCH (22:37)
[2017-04-04] MEDS: THIAMINE IV SCH (22:37)
--- NOTE | 2017-04-04 23:53 | PCM.PNMED ---
Subjective Date of Service Apr 04, 2017 Subjective Patient is now placed in restrained bed, as is confused and not following directions. He does not tell staff prior to getting up to go to the bathroom, high fall risk. One-on-one sitter is not available. He says is feeling fine and has no concerns Exam Vital Signs Vital Sign - Last Date Time Temp Pulse Resp B/P Pulse Ox O2 Delivery O2 Flow Rate FiO2 04/04/17 04:14 36.1 63 17 144/72 97 Room Air Intake and Output 04/03/17 04/03/17 04/04/17 Cumulative From/Thru 15:00 23:00 07:00 03/30/17 10:25 - 04/04/17 05:54 Intake Total 1749 ml 836 ml 7329 ml Output Total 975 ml 1700 ml 6325 ml Balance 774 ml -864 ml 1004 ml Intake Oral 1626 ml 836 ml 6699 ml IV Total 123 ml 630 ml Output Urine Total 975 ml 1700 ml 6325 ml # Voids 1 2 37 # Bowel Movements 1 0 8 Exam Gen.: No acute distress coughing a little HEENT: Normocephalic, recommended Lungs: Negative for wheezing, bilateral crackles and rales, patient is coughing and I set him up Heart irregular rate Extremities: No edema Abdomen: Nondistended, soft Neuro: No focal deficits Psych: Negative for anxiety and agitation IVs and Medications Medications Reviewed: Medications were reviewed in detail Lab and Diagnostics Result Diagram: 03/30/17 1045 04/03/17 0630 X-Rays, CTs and MRIs CT BRAIN WITHOUT CONTRAST IMPRESSION: 1. No acute intracranial process. 2. Moderate atrophy and chronic microvascular ischemic changes. Approved by: Kita Desai M.D. on 03/30/2017 at 10:12 MRA ANGIOGRAM HEAD WITHOUT CONTRAST IMPRESSION: Patient motion degrades quality of visualization but within the constraints of this study no definite acute disease is found. Approved by: Dong Garcia M.D. on 03/30/2017 at 19:55 MRI BRAIN WITHOUT CONTRAST IMPRESSION: Moderate brain parenchymal atrophy, quality of visualization is quite limited by persistent patient motion during image acquisition. No stroke found, no mass seen, no obstructive hydrocephalus suspected. Dictated by: Dong Garcia M.D. on 03/30/2017 at 19:53 Assessment & Plan Mr. Pedro Barrera is an 86 year old gentleman with a past medical history of Hypertension on no medications, recent alcoholism and presumed dementia presenting to the [facility] ED by way of EMS when daughter, Sabina noticed patient was displaying global expressive aphasia this morning. 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 Active. - Initially, TPA considered in the ED due to concern for a stroke, however event was out side of time frame. CT as above. - MR stroke protocol. Showed no concern for stroke - O2 on, titrate to 92% saturations. - EKG reviewed, NSR. Tele on . - 81 mg aspirin daily - pravastatin 10 mg QD based on lipid panel - A1c shows he is not a diabetic - NIH score of 3 on admission. Continue Q4H neuro checks, - Swallow screen ordered. Dysphagia diet with thin liquids are recommended PT evaluation ordered. - Echocardiogram is ordered and showed 65-70% ejection fraction, as well as lipid panel (chol= 172 triglycerides 86 LDL 106 HDL 48 and A1c 6.0. -Based on patient's cardiac risk profile, we will initiate pravastatin 10 mg daily at bedtime. 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 He agrees with vitamin infusions, we appreciate his time and recommendations - We will plan to give IV thiamine infusions per uptodate: "A recommended regimen is 500 mg of thiamine intravenously, infused over 30 minutes, three times daily for two consecutive days and 250 mg intravenously or intramuscularly once daily for an additional five days, in combination with other B vitamins Administration of glucose without thiamine can precipitate or worsen WE; thus, thiamine should be administered before glucose. Because gastrointestinal absorption of thiamine is erratic in alcoholic and malnourished patients, oral administration of thiamine is an unreliable initial treatment for WE. High-dose parenteral thiamine therapy is justified based on the failure of lower doses to produce clinical improvement in some patients with " -- Pharmacy is contacted regarding B complex vit, they are saying nephrovites are the only option. These will be ordered in addition to thiamine infusions. -- Social work consult for prison placement is placed. Second-degree AV block reported a.m. of 04/03 resolved -- Patient experienced a brief episode of A. fib on 04/02, he was put on metoprolol 25 mg by mouth twice a day -- On 04/03 am, patient was reported to have few minutes of second-degree AV block -- Cardiology is consulted, Dr. Whaley feels that this may be due to sleep cycle -- Metoprolol dose is reduced to 12.5. mg -- No overnight to the monitoring events on 04/04 Atrial fibrillation with RVR, reported on 04/02 resolved -- Continue metoprolol 12.5 mg twice a day Recent history of Alcohol dependance. - Thiamine given. - CIWA protocol ordered. Valium for ciwa score of greater than 8 - Seizure protocol ordered. EEG is performed today, result is pending - CD assessment with Case management. Chronic conditions. Insomnia - Holding home trazodone and Melatonin. Hypertension, chronic unknown level of control -- Patient will be started on chlorthalidone 12.5 mg daily -- Reviewed records from [facility], that daughter has brought in. Patient was apparently on hydrochlorothiazide valsartan combo pill 20 - 100 mg daily prior to arriving at the ED. It is unclear if he ever actually picked up the prescription and use the medication. Acetaminophen for mild pain when necessary. Bowel regimen Senna and MiraLAX scheduled and PRN. Zofran when necessary for nausea and vomiting. SubQ heparin for now. SCDs in place. High-risk medications: NONE. Social: Daughter states she has DPOA paperwork which she will bring in, and would like to make out a POLST, with DNR/DNI designation. Patient uses a cane for walking. Patient Status: Patient is admitted under inpatient status with expected length of stay greater than 2 midnights due to severity of presenting symptoms, risk of adverse event, and complexity of treatment plan. I will obtain consult for placement as he is clearly not wanting to go home with Sabina. Dr. Muhammad is the POA. Several relatives attempted to call on behalf of patient's son, , patient is unable to make a decision as he is encephalopathic. Apparently the son has lived off of patient's money and has not taken care of the patient, patient is unable to tell me if he would like for his son to be involved in his care. We suggested to his son that any questions should be routed to Dr. Muhammad. .Daughter Has brought in his PCP info: Dr. Kayla Brady , [facility] [address] [place] phone number [phone]. Records were requested. Consider discontinuing telemetry on 04/05. Patient is currently being considered for life care according to social media manager VTE Mechanical Devices: Intermittant Pneumatic CD Resuscitation Status: DNR/DNI:Do Not Resuscitate/Intubate Time spent 25 min Ana Head DO Apr 04, 2017 08:59
[2017-04-05] VITALS (7 sets, daily range): BP systolic 123–178; BP diastolic 71–78; PULSE 59–83; RESP 16–18; O2SAT 96–98
[2017-04-05] MEDS: Heparin 5,000 Unit/mL Inj SUBQ SCH ×3 (00:06→17:38)
--- NOTE | 2017-04-05 06:33 | NUR ---
Neuro/Soma Bed Restrain Patient alert and remains confused,oriented to self only. Soma bed used due to pt at very high risk of fall-impulsive,unsteady gait,get up quickly without using call light. Pt appears comfortable and calm in soma bed, sleeping comfortably for most of night. No focal neuro deficit noted: no facial droop noted, no speech abnormality noted, tongue midline, strength equal strong at all extremities, sensation intact.
[2017-04-05] MEDS: Multivit-Miner-Folic Acid-Iron Tablet PO SCH (09:22)
[2017-04-05] MEDS: Vitamin B Complex/Vit C Tablet PO SCH (09:23)
--- NOTE | 2017-04-05 11:57 | PCM.PNMED ---
Subjective Date of Service Apr 05, 2017 Subjective Soma Bed Restraint. No overnight events. CIWA scores <3. Exam Vital Signs Vital Sign - Last Date Time Temp Pulse Resp B/P Pulse Ox O2 Delivery O2 Flow Rate FiO2 04/05/17 10:51 62 04/05/17 08:42 36.3 16 123/71 98 Room Air Intake and Output 04/04/17 04/04/17 04/05/17 Cumulative From/Thru 15:00 23:00 07:00 03/30/17 10:25 - 04/05/17 06:00 Intake Total 1210 ml 170 ml 8709 ml Output Total 970 ml 7295 ml Balance 240 ml 170 ml 1414 ml Intake Oral 1210 ml 100 ml 8009 ml IV Total 70 ml 700 ml Output Urine Total 970 ml 7295 ml # Voids 2 3 42 # Bowel Movements 0 8 Exam Gen.: No acute distress, AOX1- name only. Pleasant mood. Follows basic commands. HEENT: Normocephalic, recommended Lungs: Negative for wheezing, bilateral crackles and rales, patient is coughing and I set him up Heart irregular rate Extremities: No edema Abdomen: Nondistended, soft Neuro: No focal deficits, AOX1- name only. Psych: Negative for anxiety and agitation IVs and Medications Medications Reviewed: Medications were reviewed in detail Lab and Diagnostics Result Diagram: 03/30/17 1045 04/03/17 0630 X-Rays, CTs and MRIs CT BRAIN WITHOUT CONTRAST IMPRESSION: 1. No acute intracranial process. 2. Moderate atrophy and chronic microvascular ischemic changes. Approved by: Kita Desai M.D. on 03/30/2017 at 10:12 MRA ANGIOGRAM HEAD WITHOUT CONTRAST IMPRESSION: Patient motion degrades quality of visualization but within the constraints of this study no definite acute disease is found. Approved by: Dong Garcia M.D. on 03/30/2017 at 19:55 MRI BRAIN WITHOUT CONTRAST IMPRESSION: Moderate brain parenchymal atrophy, quality of visualization is quite limited by persistent patient motion during image acquisition. No stroke found, no mass seen, no obstructive hydrocephalus suspected. Dictated by: Dong Garcia M.D. on 03/30/2017 at 19:53 Assessment & Plan Mr. Pedro Barrera is an 86 year old gentleman with a past medical history of Hypertension on no medications, recent alcoholism and presumed dementia presenting to the [facility] ED by way of EMS when daughter, Sabina noticed patient was displaying global expressive aphasia this morning. 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 Active. - Initially, TPA considered in the ED due to concern for a stroke, however event was out side of time frame. CT as above. - MR stroke protocol. Showed no concern for stroke - EKG reviewed, NSR. Tele on . - A1c shows he is not a diabetic - Echocardiogram is ordered and showed 65-70% ejection fraction, as well as lipid panel (chol= 172 triglycerides 86 LDL 106 HDL 48 and A1c 6.0. - initiate pravastatin 10 mg daily at bedtime. 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 He agrees with vitamin infusions, we appreciate his time and recommendations -- Pharmacy is contacted regarding B complex vit, they are saying nephrovites are the only option. These will be ordered in addition to IV thiamine infusions for total of 7 days. - Swallow screen ordered. Dysphagia diet with thin liquids are recommended. -- Social work consult for SNF. Second-degree AV block reported a.m. of 04/03, resolved -- Patient experienced a brief episode of A. fib on 04/02, he was put on metoprolol 25 mg by mouth twice a day -- On 04/03 am, patient was reported to have few minutes of second-degree AV block -- Cardiology consulted, Dr. Whaley feels that this may be due to sleep cycle -- Metoprolol dose is reduced to 12.5. mg, will need new prescription upon discharge. -- No overnight to the monitoring events since change. Atrial fibrillation with RVR, reported on 04/02 resolved -- Started metoprolol 12.5 mg twice a day. Recent history of Alcohol dependance. - Thiamine given. See plan above. - CIWA protocol ordered. Valium for ciwa score of greater than 8, CIWA dc/d as scores <3. - CD assessment with Case management. Chronic conditions. Insomnia - Holding home trazodone and Melatonin. Hypertension, chronic unknown level of control, active. -- Reviewed records from [facility], that daughter has brought in. Patient was apparently on hydrochlorothiazide valsartan combo pill 20 - 100 mg daily prior to arriving at the ED. It is unclear if he ever actually picked up the prescription and use the medication. - Current regimen- Amlodipine 10mg daily, Metoprolol 12.5 mg BID, Chlorthalidone 25mg daily. Acetaminophen for mild pain when necessary. Bowel regimen Senna and MiraLAX scheduled and PRN. Zofran when necessary for nausea and vomiting. SubQ heparin for now. SCDs in place. High-risk medications: NONE. Social: Daughter states she has DPOA paperwork which she will bring in, and would like to make out a POLST, with DNR/DNI designation. Several relatives attempted to call on behalf of patient's son, patient is unable to make a decision as he is encephalopathic. Apparently the son has lived off of patient' s money and has not taken care of the patient, patient is unable to tell me if he would like for his son to be involved in his care. We suggested to his son that any questions should be routed to Sabina. PCP info: Dr. Kayla Brady, [address] [place] phone number [phone]. Records were requested. Patient Status: Patient is admitted under inpatient status with expected length of stay greater than 2 midnights due to severity of presenting symptoms, risk of adverse event, and complexity of treatment plan. SW consult for placement to SNF VTE Mechanical Devices: Intermittant Pneumatic CD Resuscitation Status: DNR/DNI:Do Not Resuscitate/Intubate Harsha Reece MD Apr 05, 2017 11:57
--- NOTE | 2017-04-05 15:54 | NUR ---
Social Work- continued d/c planning: Data:EMR Reviewed. Pt is on day 6 of hospitalization for CVA per H&P. Pt is not medically stable. ALEX spoke with Keiko at [facility] [place] who states she is working on authorization with pt's insurance, but she would like to see how pt does once restraints/sitter are discontinued. ALEX received a call from pt's daughter Sabina regarding pt. Sabina states she is continuing to look for placement and would like a referral sent to [facility]. Daughter aware they do not contract with pt's insurance and this would be private pay. ALEX also updated daughter on [employer]. ALEX provided access in [employer] to [facility] and faxed [employer]. ALEX called Rocio in admissions and informed her of pt. Paperwork in the chart. ALEX will continue to follow. Assessment:pt who will need placement. Plan:[facility] [place] pending acceptance and working on insurance authorization. Referral also has been made to [facility]. Paperwork in the chart. ALEX will continue to follow. PANCHO Crowder
--- NOTE | 2017-04-05 18:30 | NUR ---
Soma Patient unable to remember how to use call light. Forgetful, confused, has difficulty following directions. Does not respond to bed alarm or slow down to instructions.
[2017-04-05] MEDS: THIAMINE IV SCH (22:13)
[2017-04-05] MEDS: DEXTROSE 5% IV SCH (22:13)
[2017-04-06] VITALS (8 sets, daily range): BP systolic 117–169; BP diastolic 68–75; PULSE 54–79; RESP 18; O2SAT 94–98
[2017-04-06] MEDS: Heparin 5,000 Unit/mL Inj SUBQ SCH ×3 (00:24→17:46)
--- NOTE | 2017-04-06 03:51 | NUR ---
Neuro Pt is confused; but able to use his call light sometimes when he needs to use the urinal. Pt had episodes of incontinence when he forgot to use the call light. 1PA; gait unsteady. Pt in a Soma bed. hourly rounding and Q2hr restraint check done.
[2017-04-06] MEDS: Multivit-Miner-Folic Acid-Iron Tablet PO SCH (09:35)
[2017-04-06] MEDS: Vitamin B Complex/Vit C Tablet PO SCH (09:38)
--- NOTE | 2017-04-06 12:26 | NUR ---
NUTRITION ASSESSMENT: ASSESS: 86 YO male admitted for CVA, global aphasia. Pt remains confused per notes. Pt with good po intake. PMHx: HTN, recent alcoholism, presumed dementia. LABS: Reviewed. BUN 34, Glu 102, Alb 4.0 MEDS: Reviewed. GI: BM x 1 (04/05) CURRENT WT: 74 kg. DIET: Dysphagia Mechanical. PO 100%. EST. NEEDS: 7705-0988 kcals (25-30 kcals/kg BW), 75-90 g protein (1.0-1.2 g/kg BW) NUTRITION DIAGNOSIS: 1.) No nutritional diagnosis at this time. NUTRITION INTERVENTION: 1.) No nutritional intervention at this time. MONITOR / EVAL: PO intake, labs, nutritional status. Follow per low nutritional risk guidelines.
--- NOTE | 2017-04-06 13:43 | NUR ---
MARCE signed with Daughter. PANCHO Crowder
--- NOTE | 2017-04-06 14:16 | PCM.PNMED ---
Subjective Date of Service Apr 06, 2017 Subjective Pt has been more alert, per nurse still confused but using calling light at times. Soma bed overnight. Exam Vital Signs Vital Sign - Last Date Time Temp Pulse Resp B/P Pulse Ox O2 Delivery O2 Flow Rate FiO2 04/06/17 12:42 37.0 67 18 133/68 98 Room Air Intake and Output 04/05/17 04/05/17 04/06/17 Cumulative From/Thru 15:00 23:00 07:00 03/30/17 10:25 - 04/06/17 06:27 Intake Total 472 ml 0 ml 9181 ml Output Total 300 ml 575 ml 8170 ml Balance 172 ml -575 ml 1011 ml Intake Oral 472 ml 0 ml 8481 ml IV Total 700 ml Output Urine Total 300 ml 575 ml 8170 ml # Voids 6 3 51 # Bowel Movements 1 9 Exam Gen.: No acute distress, AOX1- name only. Pleasant mood. Follows basic commands. HEENT: Normocephalic, recommended Lungs: Negative for wheezing, bilateral crackles and rales, patient is coughing and I set him up Heart irregular rate Extremities: No edema Abdomen: Nondistended, soft Neuro: No focal deficits, AOX1- name only. Psych: Negative for anxiety and agitation IVs and Medications Medications Reviewed: Medications were reviewed in detail Lab and Diagnostics Result Diagram: 04/06/17 0604 X-Rays, CTs and MRIs CT BRAIN WITHOUT CONTRAST IMPRESSION: 1. No acute intracranial process. 2. Moderate atrophy and chronic microvascular ischemic changes. Approved by: Kita Desai M.D. on 03/30/2017 at 10:12 MRA ANGIOGRAM HEAD WITHOUT CONTRAST IMPRESSION: Patient motion degrades quality of visualization but within the constraints of this study no definite acute disease is found. Approved by: Dong Garcia M.D. on 03/30/2017 at 19:55 MRI BRAIN WITHOUT CONTRAST IMPRESSION: Moderate brain parenchymal atrophy, quality of visualization is quite limited by persistent patient motion during image acquisition. No stroke found, no mass seen, no obstructive hydrocephalus suspected. Dictated by: Dong Garcia M.D. on 03/30/2017 at 19:53 Assessment & Plan Mr. Pedro Barrera is an 86 year old gentleman with a past medical history of Hypertension on no medications, recent alcoholism and presumed dementia presenting to the [facility] ED by way of EMS when daughter, Sabina noticed patient was displaying global expressive aphasia, Stroke workup including MRI was negative. Pt is improving but still with AMS. 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 Active. - Initially, TPA considered in the ED due to concern for a stroke, however event was out side of claude e frame. CT as above. - MR stroke protocol. Showed no concern for stroke - EKG reviewed, NSR. Tele on . - A1c shows he is not a diabetic - Echocardiogram is ordered and showed 65-70% ejection fraction, as well as lipid panel (chol= 172 triglycerides 86 LDL 106 HDL 48 and A1c 6.0. - initiated pravastatin 10 mg daily at bedtime. 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 He agrees with vitamin infusions, we appreciate his time and recommendations - Given B complex vit, IV thiamine infusions for total of 7 days. - Swallow screen ordered. Dysphagia diet with thin liquids are recommended. -- Social work consult for SNF, placement pending. . Second-degree AV block reported a.m. of 04/03, resolved -- Patient experienced a brief episode of A. fib on 04/02, he was put on metoprolol 25 mg by mouth twice a day -- On 04/03 am, patient was reported to have few minutes of second-degree AV block -- Cardiology consulted, Dr. Whaley feels that this may be due to sleep cycle -- Metoprolol dose is reduced to 12.5. mg, will need new prescription upon discharge. -- No overnight to the monitoring events since change. Atrial fibrillation with RVR, reported on 04/02 resolved -- Started metoprolol 12.5 mg twice a day. Recent history of Alcohol dependance. - Thiamine given. See plan above. - CIWA protocol ordered. Valium for ciwa score of greater than 8, CIWA dc/d as scores <3. - CD assessment with Case management. Chronic conditions. Insomnia - Holding home trazodone and Melatonin due to confusion. Hypertension, chronic unknown level of control, active. -- Reviewed records from [facility], that daughter has brought in. Patient was apparently on hydrochlorothiazide valsartan combo pill 20 - 100 mg daily prior to arriving at the ED. It is unclear if he ever actually picked up the prescription and use the medication. - Current regimen- Amlodipine 10mg daily, Metoprolol 12.5 mg BID, Chlorthalidone 25mg daily. Acetaminophen for mild pain when necessary. Bowel regimen Senna and MiraLAX scheduled and PRN. Zofran when necessary for nausea and vomiting. High-risk medications: NONE. Social: Daughter states she has DPOA paperwork which she will bring in, and would like to make out a POLST, with DNR/DNI designation. Several relatives attempted to call on behalf of patient's son, patient is unable to make a decision as he is encephalopathic. Apparently the son has lived off of patient' s money and has not taken care of the patient, patient is unable to tell me if he would like for his son to be involved in his care. We suggested to his son that any questions should be routed to Sabina. PCP info: Dr. Kayla Brady, [address] [place] phone number [phone]. Records were requested. Patient Status: Patient is admitted under inpatient status with expected length of stay greater than 2 midnights due to severity of presenting symptoms, risk of adverse event, and complexity of treatment plan. SW consult for placement to SNF VTE Mechanical Devices: Intermittant Pneumatic CD Resuscitation Status: DNR/DNI:Do Not Resuscitate/Intubate Harsha Reece MD Apr 06, 2017 14:16
--- NOTE | 2017-04-06 15:21 | NUR ---
[facility] can accept pt with Dr. Wick to follow. Private pay amount would be $15,420. [facility] would like to see pt out of restraints/sitter for 24 hours. will continue to follow. PANCHO Crowder
--- NOTE | 2017-04-06 15:22 | NUR ---
Social Work-continued d/c planning: Data& assessment:EMR reviewed. Pt is on day 7 of hospitalization for CVA per H&P. Pt is not medically stable. ALEX received a call from [facility] who states pt's plan with [facility] is out of network and Keiko is working on getting them to agree to a one time contract in this area. ALEX spoke with pt's daughter and provided her with update on this information. SW also updated pt's daughter that [facility], but this would be private pay and private pay amount would be $15,420. Daughter states she would like to see what happens with [facility]. Daughter also states she is working with an agency on placement also. SW requested by Finance Business Manager to speak with pt's daughter Sabina who does have DPOA paperwork and this has been in the pt's chart. Pt's other daughter Roula came to hospital and was upset that she was not making decisions. ALEX and Finance Business Manager spoke with Roula and explained that due to the fact that pt is non-decisional, doctor has documented this, [facility] has to use the most recent DPOA paperwork and [facility] has to go with decisions from DPOA- Sabina. SW provided Roula with patient advocate cards and encouraged her to call with further questions. SW updated admin on situation and they are in agreement that the most recent DPOA paperwork would be the one we would use. Plan:[facility] working on authorization. [facility] accepted pt private pay. ALEX will continue to follow. PANCHO Crowder
--- NOTE | 2017-04-06 15:32 | NUR ---
Social Work received a call from [facility] who states that [facility] has declined pt for SNF admission. SW to follow up with daughter and provided update. PANCHO Crowder
--- NOTE | 2017-04-06 18:17 | NUR ---
Privacy Patient/Forgetfulness Two visitors in patient room today, a male and a female, introducing themselves as "friends of the patients sister and brother, here in behalf of the family". The female left the room to "get something to eat". Patients daughter came to visit and was told by the male, "he does not want to see you, you need to leave". Daughter (Sabina) very upset asking, "who are you, why are you in my fathers room"?. Man replied that it was none of her business who he is, and repeated that patient did not want to see daughter and she should go. Daughter (Sabina), told the man to get out of the room or she would call police. Staff intervened and manager community development spoke to Sabina, who then met with case monitor Sabina is the patients DPOA-paperwork is in the chart. Sabina reports that the female in the room is her sister (patient's other daughter), and they passed in the hallway, but the female visitor did not acknowledge Sabina. The female visitor lives in [place] and Sabina was very surprised to see her here. The male visitor was asked to leave, which he did without conflict. The female visitor later returned to the unit and was asked to leave per staff. Patient is now a privacy patient. All visitors and phones calls must give the pin # (in chart) in order to see or speak with the patient. Patient continues to be forgetful, does not know where he is, the date or the current president.
[2017-04-06] MEDS: DEXTROSE 5% IV SCH (21:59)
[2017-04-06] MEDS: THIAMINE IV SCH (21:59)
[2017-04-06] MEDS ORDERED: 0.9% Sodium Chloride 100 ML ONE (22:01)
[2017-04-07] MEDS: Heparin 5,000 Unit/mL Inj SUBQ SCH ×3 (00:30→16:23)
[2017-04-07 02:30] VITALS: BP 142/72; PULSE 65; RESP 18; O2SAT 96
--- NOTE | 2017-04-07 04:45 | NUR ---
/mentation Terrence Parham in to investigate re: daughter's (Roula) complaints about pt's DPOA Sabina. interviewed Day RN, Vivi and pt. He left his business card and case number is written in the back. Business card taped in pt's chart. Pt alert and oriented to self only. He reports he's in a basement. Pt wanted to call his sister, Hyacinth who lives in [facility]. This RN informed pt that the phone in the room is just for local numbers only and unable to make that kind of phone call. Pt doesn't remember Hyacinth's phone number. This RN offered to call Sabina to see if she could make the phone call for him. Pt replied, "she would not allow me to make that phone call". Pt got distracted and the topic didn't come up again throughout this shift. Pt intermittently restless; in a soma bed. hourly rounding done. Addendum: 04/07/17 at 0640 by SABA SAMUEL RN Pt is impulsive when soma bed is unzipped for care and ADLs; minimal assist and quick to stand. gait unsteady; SBA - 1person minimal assist to walk to the chair. Pt is able to follow directions but unpredictable.
[2017-04-07 05:22] VITALS: BP 137/79; PULSE 75; RESP 18; O2SAT 97
[2017-04-07 06:08] VITALS: PULSE 56
[2017-04-07] MEDS: Multivit-Miner-Folic Acid-Iron Tablet PO SCH (09:59)
[2017-04-07] MEDS: Vitamin B Complex/Vit C Tablet PO SCH (10:00)
--- NOTE | 2017-04-07 12:59 | PCM.PNMED ---
Subjective Date of Service Apr 07, 2017 Subjective No overnight events, in Soma bed. Exam Vital Signs Vital Sign - Last Date Time Temp Pulse Resp B/P Pulse Ox O2 Delivery O2 Flow Rate FiO2 04/07/17 06:08 56 04/07/17 05:22 36.2 18 137/79 97 Room Air Intake and Output 04/06/17 04/06/17 04/07/17 Cumulative From/Thru 15:00 23:00 07:00 03/30/17 10:25 - 04/07/17 05:16 Intake Total 1440 ml 200 ml 49284 ml Output Total 1150 ml 9320 ml Balance 290 ml 200 ml 1501 ml Intake Oral 1440 ml 200 ml 94108 ml IV Total 700 ml Output Urine Total 1150 ml 9320 ml # Voids 4 3 58 # Bowel Movements 0 9 Exam Gen.: No acute distress, AOX1- name only. Pleasant mood. Follows basic commands. HEENT: Normocephalic, recommended Lungs: Negative for wheezing, bilateral crackles and rales, patient is coughing and I set him up Heart irregular rate Extremities: No edema Abdomen: Nondistended, soft Neuro: No focal deficits, AOX1- name only. Psych: Negative for anxiety and agitation Lab and Diagnostics Result Diagram: 04/06/17 0604 X-Rays, CTs and MRIs CT BRAIN WITHOUT CONTRAST IMPRESSION: 1. No acute intracranial process. 2. Moderate atrophy and chronic microvascular ischemic changes. Approved by: Kita Desai M.D. on 03/30/2017 at 10:12 MRA ANGIOGRAM HEAD WITHOUT CONTRAST IMPRESSION: Patient motion degrades quality of visualization but within the constraints of this study no definite acute disease is found. Approved by: Dong Garcia M.D. on 03/30/2017 at 19:55 MRI BRAIN WITHOUT CONTRAST IMPRESSION: Moderate brain parenchymal atrophy, quality of visualization is quite limited by persistent patient motion during image acquisition. No stroke found, no mass seen, no obstructive hydrocephalus suspected. Dictated by: Dong Garcia M.D. on 03/30/2017 at 19:53 Assessment & Plan Mr. Pedro Barrera is an 86 year old gentleman with a past medical history of Hypertension on no medications, recent alcoholism and presumed dementia presenting to the [facility] ED by way of EMS when daughter, Sabina noticed patient was displaying global expressive aphasia, Stroke workup including MRI was negative. Pt appears to be closer to baseline which may be AOX1. 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 Active. - Initially, TPA considered in the ED due to concern for a stroke, however event was out side of claude e frame. CT as above. - MR stroke protocol. Showed no concern for stroke - EKG reviewed, NSR. Tele on . - A1c shows he is not a diabetic - Echocardiogram is ordered and showed 65-70% ejection fraction, as well as lipid panel (chol= 172 triglycerides 86 LDL 106 HDL 48 and A1c 6.0. - initiated pravastatin 10 mg daily at bedtime. 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 He agrees with vitamin infusions, we appreciate his time and recommendations - Given B complex vit, IV thiamine infusions for total of 7 days. - Swallow screen ordered. Dysphagia diet with thin liquids are recommended. - Social work assisting with placement options, will call daughter, ISAIAH, regarding arranging home health and home care. Second-degree AV block reported a.m. of 04/03, resolved -- Patient experienced a brief episode of A. fib on 04/02, he was put on metoprolol 25 mg by mouth twice a day -- On 04/03 am, patient was reported to have few minutes of second-degree AV block -- Cardiology consulted, Dr. Whaley feels that this may be due to sleep cycle -- Metoprolol dose is reduced to 12.5. mg, will need new prescription upon discharge. -- No overnight to the monitoring events since change. Atrial fibrillation with RVR, reported on 04/02 resolved -- Started metoprolol 12.5 mg twice a day. Recent history of Alcohol dependance. - Thiamine given. See plan above. - CIWA protocol ordered. Valium for ciwa score of greater than 8, CIWA dc/d as scores <3. - CD assessment with Case management. Chronic conditions. Insomnia - Holding home trazodone and Melatonin due to confusion. Hypertension, chronic unknown level of control, active. -- Reviewed records from [facility], that daughter has brought in. Patient was apparently on hydrochlorothiazide valsartan combo pill 20 - 100 mg daily prior to arriving at the ED. It is unclear if he ever actually picked up the prescription and use the medication. - Current regimen- Amlodipine 10mg daily, Metoprolol 12.5 mg BID, Chlorthalidone 25mg daily. Acetaminophen for mild pain when necessary. Bowel regimen Senna and MiraLAX scheduled and PRN. Zofran when necessary for nausea and vomiting. High-risk medications: NONE. Social: Daughter states she has DPOA paperwork which she will bring in, and would like to make out a POLST, with DNR/DNI designation. Several relatives attempted to call on behalf of patient's son, patient is unable to make a decision as he is encephalopathic. Apparently the son has lived off of patient' s money and has not taken care of the patient, patient is unable to tell me if he would like for his son to be involved in his care. We suggested to his son that any questions should be routed to aSbina. PCP info: Dr. Kayla Brady, [address] [place] phone number [phone]. Records were requested. Dispo- - Social work assisting with placement options, will call daughterISAIAH , regarding arranging home health and home care. PT had recommended home PT. VTE Mechanical Devices: Intermittant Pneumatic CD Resuscitation Status: DNR/DNI:Do Not Resuscitate/Intubate Harsha Reece MD Apr 07, 2017 12:59
[2017-04-07 14:46] VITALS: BP 127/68; PULSE 72; RESP 16; O2SAT 97
--- NOTE | 2017-04-07 14:52 | NUR ---
Behavior: Resting calmly w/eyes closed. Calm and cooperative w/care, allowing for assessment, vitals, med administration, toileting. Unsteady gait. Alert to self only, believes that it is "1903" and "Rangel" is the president. Will continue to assess.
--- NOTE | 2017-04-07 16:57 | NUR ---
Social Work: Brief Note ALEX called and left a message for patient's daughter Sabina at 1246. ALEX has not received a call back from Sabina. ALEX informed Sabina via voicemail that patient's insurance denied admission to [facility]. ALEX requested a call back to discuss other options such as private pay at [facility] or home with daughter Sabina. ALEX will continue to follow. PANCHO Oliva
--- NOTE | 2017-04-07 18:13 | NUR ---
Visitors: Witnessed a man and woman looking through the window of patients room and attempted to open door. Asked if I could help them, the female stated "I wanted to visit my Dad." From photo in chart, knew that this was not Sabina. Told the couple "this patient is not taking visitors." The female asked for my name and if I was his nurse then she wrote it down on a piece of paper and they both left the unit. Addendum: 04/07/17 at 1831 by MARCIA MORALEZ RN Confirmed w/ RODRIGO NATH that no one had called to ask for information or stopped at the desk to ask for information about patient. Maury RODAS confirmed with switchboard/information desk that no one had stopped to ask for information regarding this patient.
[2017-04-07 19:55] VITALS: BP 117/50; PULSE 80; RESP 18; O2SAT 96
[2017-04-07] MEDS: DEXTROSE 5% IV SCH (21:58)
[2017-04-07] MEDS: THIAMINE IV SCH (21:58)
[2017-04-08] MEDS: Heparin 5,000 Unit/mL Inj SUBQ SCH ×3 (00:17→16:47)
[2017-04-08 05:22] VITALS: BP 122/62; PULSE 74; RESP 16; O2SAT 97
[2017-04-08 10:05] VITALS: BP 167/79; PULSE 72; RESP 16; O2SAT 96
[2017-04-08] MEDS: Vitamin B Complex/Vit C Tablet PO SCH (10:17)
[2017-04-08] MEDS: Multivit-Miner-Folic Acid-Iron Tablet PO SCH (10:19)
--- NOTE | 2017-04-08 10:24 | PCM.PNMED ---
Subjective Date of Service Apr 08, 2017 Subjective Pt has not required Soma bed since yesterday afternoon. No overnight events. Exam Vital Signs Vital Sign - Last Date Time Temp Pulse Resp B/P Pulse Ox O2 Delivery O2 Flow Rate FiO2 04/08/17 05:22 36.9 74 16 122/62 97 Room Air Intake and Output 04/07/17 04/07/17 04/08/17 Cumulative From/Thru 15:00 23:00 07:00 03/30/17 10:25 - 04/08/17 06:14 Intake Total 1130 ml 363 ml 35938 ml Output Total 800 ml 300 ml 10316 ml Balance 330 ml 63 ml 1894 ml Intake Oral 1130 ml 363 ml 33307 ml IV Total 700 ml Output Urine Total 800 ml 300 ml 08693 ml # Voids 4 2 64 # Bowel Movements 0 0 9 Exam Gen.: No acute distress, AOX1- name only. Pleasant mood. Follows basic commands. HEENT: Normocephalic, recommended Lungs: Negative for wheezing, bilateral crackles and rales, patient is coughing and I set him up Heart irregular rate Extremities: No edema Abdomen: Nondistended, soft Neuro: No focal deficits, AOX1- name only. Psych: Negative for anxiety and agitation Lab and Diagnostics Result Diagram: 04/06/17 0604 X-Rays, CTs and MRIs CT BRAIN WITHOUT CONTRAST IMPRESSION: 1. No acute intracranial process. 2. Moderate atrophy and chronic microvascular ischemic changes. Approved by: Kita Desai M.D. on 03/30/2017 at 10:12 MRA ANGIOGRAM HEAD WITHOUT CONTRAST IMPRESSION: Patient motion degrades quality of visualization but within the constraints of this study no definite acute disease is found. Approved by: Dong Garcia M.D. on 03/30/2017 at 19:55 MRI BRAIN WITHOUT CONTRAST IMPRESSION: Moderate brain parenchymal atrophy, quality of visualization is quite limited by persistent patient motion during image acquisition. No stroke found, no mass seen, no obstructive hydrocephalus suspected. Dictated by: Dong Garcia M.D. on 03/30/2017 at 19:53 Assessment & Plan Mr. Pedro Barrera is an 86 year old gentleman with a past medical history of Hypertension on no medications, recent alcoholism and presumed dementia presenting to the [facility] ED by way of EMS when daughter, Sabina noticed patient was displaying global expressive aphasia, Stroke workup including MRI was negative. Pt appears to be closer to baseline which may be AOX1-2. 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 Active. - MR stroke protocol. Showed no concern for stroke - EKG reviewed, NSR. Tele showed no events. . - Echocardiogram is ordered and showed 65-70% ejection fraction, as well as lipid panel (chol= 172 triglycerides 86 LDL 106 HDL 48 and A1c 6.0. - initiated pravastatin 10 mg daily at bedtime. 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 He agrees with vitamin infusions, we appreciate his time and recommendations - Given B complex vit, IV thiamine infusions for total of 7 days. - Swallow screen ordered. Dysphagia diet with thin liquids are recommended. - Social work- pending placement Chandra, likely d/c 04/09. Second-degree AV block reported a.m. of 04/03, resolved -- Patient experienced a brief episode of A. fib on 04/02, he was put on metoprolol 25 mg by mouth twice a day -- On 04/03 am, patient was reported to have few minutes of second-degree AV block -- Cardiology consulted, Dr. Whaley feels that this may be due to sleep cycle -- Metoprolol dose is reduced to 12.5. mg, will need new prescription upon discharge. -- No overnight to the monitoring events since change. Atrial fibrillation with RVR, reported on 04/02 resolved -- Started metoprolol 12.5 mg twice a day. Recent history of Alcohol dependance. - Thiamine given. See plan above. - Was on CIWA protocol ordered. CIWA dc/d 04/05 as scores <3. - CD assessment with Case management. Chronic conditions. Insomnia - Continue Melatonin due to confusion. Trazadone was held, can be restarted when appropriate. Hypertension, chronic unknown level of control, active. -- Reviewed records from [facility], that daughter has brought in. Patient was apparently on hydrochlorothiazide valsartan combo pill 20 - 100 mg daily prior to arriving at the ED. It is unclear if he ever actually picked up the prescription and use the medication. - For blood pressure, follow current regimen of Amlodipine 10mg daily, Metoprolol 12.5 mg BID, Chlorthalidone 25mg daily. Acetaminophen for mild pain when necessary. Bowel regimen Senna and MiraLAX scheduled and PRN. Zofran when necessary for nausea and vomiting. High-risk medications: NONE. Social: Daughter, Sabina, has provided DP paperwork. Several relatives attempted to call on behalf of patient's son, questions should be routed to Sabina per DPOA request. Dispo- - - Social work- pending placement Chandra, liseth d/c 04/09. . - Continue, pravastatin 10 mg daily at bedtime. 81 mg aspirin daily - For blood pressure, follow current regimen of Amlodipine 10mg daily, Metoprolol 12.5 mg BID, Chlorthalidone 25mg daily. . VTE Mechanical Devices: Intermittant Pneumatic CD Resuscitation Status: DNR/DNI:Do Not Resuscitate/Intubate Harsha Reece MD Apr 08, 2017 10:24
[2017-04-08 12:05] VITALS: BP 165/66; PULSE 94; RESP 16; O2SAT 98
--- NOTE | 2017-04-08 14:35 | NUR ---
Phone Call From Son 0940 - Discussed her care with Dr. Reece and the rest of the multidisciplinary care team during morning rounds. Notified them that he had not been confined to his Soma bed since yesterday afternoon. Also, informed them that his son, Pedro Munoz, had called and was requesting to speak with the Doctor. The director community organization said she had called the [facility] and confirmed that staff could speak to his son and give him information on his status. The daughter said to not notify him which room number he was in or let him speak to the patient. Both the Doctor and the Charge Nurse said that due to previous incidences to not call the son back and give out any information. Care continues.
[2017-04-08 15:44] VITALS: BP 131/78; PULSE 69; RESP 16; O2SAT 96
[2017-04-08 21:29] VITALS: BP 180/78; PULSE 81; RESP 16; O2SAT 98
[2017-04-09] MEDS: Heparin 5,000 Unit/mL Inj SUBQ SCH ×3 (00:46→16:36)
[2017-04-09 05:18] VITALS: BP 161/81; PULSE 69; RESP 20; O2SAT 98
[2017-04-09] MEDS: Vitamin B Complex/Vit C Tablet PO SCH (09:45)
[2017-04-09] MEDS: Multivit-Miner-Folic Acid-Iron Tablet PO SCH (09:45)
[2017-04-09 10:00] VITALS: BP 169/88; PULSE 66; RESP 14; O2SAT 99
--- NOTE | 2017-04-09 11:59 | PCM.PNMED ---
Subjective Date of Service Apr 09, 2017 Subjective Has been off Soma bed >24 hrs. BP elevated overnight 180/78 Exam Vital Signs Vital Sign - Last Date Time Temp Pulse Resp B/P Pulse Ox O2 Delivery O2 Flow Rate FiO2 04/09/17 05:18 36.6 69 20 161/81 98 Room Air Intake and Output 04/08/17 04/08/17 04/09/17 Cumulative From/Thru 14:59 22:59 06:59 03/30/17 10:25 - 04/09/17 06:52 Intake Total 1108 ml 100 ml 94994 ml Output Total 450 ml 16369 ml Balance 658 ml 100 ml 2652 ml Intake Oral 1108 ml 100 ml 90457 ml IV Total 700 ml Output Urine Total 450 ml 55544 ml # Voids 6 6 76 # Bowel Movements 1 10 Exam Gen.: No acute distress, AOX1- name only. Pleasant mood. Follows basic commands. HEENT: Normocephalic, recommended Lungs: Negative for wheezing, bilateral crackles and rales, patient is coughing and I set him up Heart irregular rate Extremities: No edema Abdomen: Nondistended, soft Neuro: No focal deficits, AOX1- name only. Psych: Negative for anxiety and agitation IVs and Medications Medications Reviewed: Medications were reviewed in detail Lab and Diagnostics Result Diagram: 04/06/17 0604 X-Rays, CTs and MRIs CT BRAIN WITHOUT CONTRAST IMPRESSION: 1. No acute intracranial process. 2. Moderate atrophy and chronic microvascular ischemic changes. Approved by: Kita Desai M.D. on 03/30/2017 at 10:12 MRA ANGIOGRAM HEAD WITHOUT CONTRAST IMPRESSION: Patient motion degrades quality of visualization but within the constraints of this study no definite acute disease is found. Approved by: Dong Garcia M.D. on 03/30/2017 at 19:55 MRI BRAIN WITHOUT CONTRAST IMPRESSION: Moderate brain parenchymal atrophy, quality of visualization is quite limited by persistent patient motion during image acquisition. No stroke found, no mass seen, no obstructive hydrocephalus suspected. Dictated by: Dong Garcia M.D. on 03/30/2017 at 19:53 Assessment & Plan Mr. Pedro Barrera is an 86 year old gentleman with a past medical history of Hypertension on no medications, recent alcoholism and presumed dementia presenting to the [facility] ED by way of EMS when daughter, Sabina damico patient was displaying global expressive aphasia, Stroke workup including MRI was negative. Pt appears to be closer to baseline which may be AOX1-2. 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 Active. - MR stroke protocol. Showed no concern for stroke - EKG reviewed, NSR. Tele showed no events. . - Echocardiogram is ordered and showed 65-70% ejection fraction, as well as lipid panel (chol= 172 triglycerides 86 LDL 106 HDL 48 and A1c 6.0. - initiated pravastatin 10 mg daily at bedtime. 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 He agrees with vitamin infusions, we appreciate his time and recommendations - Given B complex vit, IV thiamine infusions for total of 7 days. - Swallow screen ordered. Dysphagia diet with thin liquids are recommended. - Social work- pending placement Chandra, likely d/c 04/10 Second-degree AV block reported a.m. of 04/03, resolved -- Patient experienced a brief episode of A. fib on 04/02, he was put on metoprolol 25 mg by mouth twice a day -- On 04/03 am, patient was reported to have few minutes of second-degree AV block -- Cardiology consulted, Dr. Whaley feels that this may be due to sleep cycle. - Metoprolol dose inc to 25mg BID on 04/09. Hypertension, chronic unknown level of control, active. -- Reviewed records from [facility], that daughter has brought in. Patient was apparently on hydrochlorothiazide valsartan combo pill 20 - 100 mg daily prior to arriving at the ED. It is unclear if he ever actually picked up the prescription and use the medication. - For blood pressure, initial regimen of Amlodipine 10mg daily, Metoprolol 12.5 mg BID, Chlorthalidone 25mg daily. - 04/09- changed thiazide to Lisinopril 10mg given new dx Pre-Diabetes and Metoprolol dose inc to 25mg BID. - Check Scr in AM and in 1 week. Atrial fibrillation with RVR, reported on 04/02 resolved -- Started metoprolol 12.5 mg twice a day, Metoprolol dose inc to 25mg BID on Recent history of Alcohol dependance. - Thiamine given. See plan above. - Was on CIWA protocol ordered. CIWA dc/d 04/05 as scores <3. - CD assessment with Case management. Prediabetes- Chronic, stable. - Hba1c of 6.0. No known hx of Diabetes. Pt has poor appetite so will hold off restricting diet. - Needs to follow up with a primary care physician in 3 months for repeat labs. Chronic conditions. Insomnia - Continue Melatonin due to confusion. Trazadone was held, can be restarted when appropriate. Acetaminophen for mild pain when necessary. Bowel regimen Senna and MiraLAX scheduled and PRN. Zofran when necessary for nausea and vomiting. High-risk medications: None Social: Daughter, Sabina, has provided DPOA paperwork. Several relatives attempted to call on behalf of patient's son, questions should be routed to Sabina per [facility] request. Dispo- - Social work- pending placement Chandra, likely d/c 04/10 - Continue, pravastatin 10 mg daily at bedtime. 81 mg aspirin daily - Needs to follow up with a primary care physician in 3 months for repeat labs. - If can't follow up with previous primary doctor can make appointment at [facility], information provided. - Continue to tale new medications added for Blood Pressure. Pain Evaluation: Adequate Pain Control VTE Prophylaxis: Sub-Q Heparin (Unfractionated) VTE Mechanical Devices: Intermittant Pneumatic CD Resuscitation Status: DNR/DNI:Do Not Resuscitate/Intubate Harsha Reece MD Apr 09, 2017 11:59
[2017-04-09 13:19] VITALS: BP 143/77; PULSE 73; RESP 15; O2SAT 98
--- NOTE | 2017-04-09 15:06 | NUR ---
Social Work: Readiness for Discharge Data: EMR Reviewed. Patient is on day 10 of hospitalization for CVA per H&P. Patient discussed in morning rounds. Patient has been in an unzipped Soma bed for at least 24h. ALEX was informed during rounds that due to Soma bed being unzipped, it is no longer considered a restraint. Additional SNF offers may now be available. Patient has been deemed medically stable and at baseline per MD. ALEX received a call from patient's daughter Sabina (DPOA). Sabina informed ALEX that she would like for patient to discharge to [facility]. Sabina states that patient was previous accepted at [facility]. Sabina informed ALEX that she is aware that patient's insurance will not pay for his stay. Sabina states that she is willing to private pay for patient's stay. Sabina states that she would like for patient to discharge "as soon as possible". ALEX informed Sabina that she would contact [facility]. ALEX called at 1519 and spoke with Dotty @ [facility]. Dotty informed ALEX that she would work on gathering patient's information and call back. During phone conversation with Sabina, she informed ALEX that she does not want any of patient's other children having access to patient's information. Sabina states that she previously granted access for patient's son Pedro BarreraJrRalph to call and obtain information. Sabina states that she no longer wants Pedro Huynh. to have access. Sabina informed ALEX that a PIN has been set up on patient's account and that information can only be released to people with the PIN. Sabina also states that she DOES NOT want any of patient's children to know that he will be discharging to [facility]. ALEX informed Sabina that she would forward this information to staff. ALEX will continue to follow. Plan: Patient to discharge to [facility] (private pay). Data: Patient to discharge to [facility] in the next 1-2 days. ALEX informed Dotty ([facility]) that patient is medically ready and can discharge as early as tomorrow 04/10 if paperwork is complete. ALEX will continue to follow. PANCHO Oliva
[2017-04-09 16:17] VITALS: BP 124/70; PULSE 72; RESP 14; O2SAT 98
--- NOTE | 2017-04-09 16:46 | NUR ---
Social Work: Brief Note MARCE was not delivered. No family at bedside. Patient is not alert & oriented and cannot sign. PANCHO Oliva
--- NOTE | 2017-04-09 17:38 | NUR ---
Social Work: Brief Note SW received a call from Dotty @ [facility] regarding acceptance of patient. Dotty informed ALEX that she has spoken with BRENDA Muhammad and patient has been accepted for a private pay bed. Patient can admit to [facility] tomorrow 04/10. ALEX informed and was told that transport can be arranged between [id number]. ALEX spoke with primary RN and was informed that patient can safely travel via wheelchair transport. ALEX has called and informed Dotty and was informed that transportation will be arranged. ALEX has called and left a voice message for BRENDA Muhammad. ALEX will continue to follow. PANCHO Oliva
--- NOTE | 2017-04-09 19:11 | NUR ---
No IV access Pts. IV leaking this afternoon and discontinued. states it is ok not to have any IV access at this time.
[2017-04-09 20:41] VITALS: BP 119/62; PULSE 73; RESP 16; O2SAT 96
[2017-04-10] MEDS: Heparin 5,000 Unit/mL Inj SUBQ SCH ×3 (00:29→16:59)
[2017-04-10 05:00] VITALS: BP 127/66; PULSE 56; RESP 15; O2SAT 99
--- NOTE | 2017-04-10 07:34 | NUR ---
Uneventful Night: Pt had an uneventful night, no c/o pain, chest pain or SOB. Pt slept on/off during the night, pleasantly confused.
[2017-04-10] MEDS: Multivit-Miner-Folic Acid-Iron Tablet PO SCH (09:22)
[2017-04-10] MEDS: Vitamin B Complex/Vit C Tablet PO SCH (09:22)
[2017-04-10 09:24] VITALS: BP 109/65; PULSE 65; RESP 16; O2SAT 99
--- NOTE | 2017-04-10 09:25 | NUR ---
MARCE verbally signed with daughter Sabina via phone. PANCHO Crowder
--- NOTE | 2017-04-10 10:40 | PCM.PNMED ---
Subjective Date of Service Apr 10, 2017 Subjective Pt has decreased fluid intake over last 2 days. Encouraged to drink but seems to forget. Exam Vital Signs Vital Sign - Last Date Time Temp Pulse Resp B/P Pulse Ox O2 Delivery O2 Flow Rate FiO2 04/10/17 09:24 36.3 65 16 109/65 99 Room Air Intake and Output 04/09/17 04/09/17 04/10/17 Cumulative From/Thru 15:00 23:00 07:00 03/30/17 10:25 - 04/10/17 05:16 Intake Total 1036 ml 82810 ml Output Total 200 ml 02909 ml Balance 836 ml 3488 ml Intake Oral 1036 ml 34168 ml IV Total 700 ml Output Urine Total 200 ml 73200 ml # Voids 3 79 # Bowel Movements 10 Exam Gen.: No acute distress, AOX1- name only. Pleasant mood. Follows basic commands. HEENT: Normocephalic, recommended Lungs: Negative for wheezing, bilateral crackles and rales, patient is coughing and I set him up Heart irregular rate Extremities: No edema Abdomen: Nondistended, soft Neuro: No focal deficits, AOX1- name only. Psych: Negative for anxiety and agitation IVs and Medications Medications Reviewed: Medications were reviewed in detail Lab and Diagnostics Result Diagram: 04/10/17 0540 X-Rays, CTs and MRIs CT BRAIN WITHOUT CONTRAST IMPRESSION: 1. No acute intracranial process. 2. Moderate atrophy and chronic microvascular ischemic changes. Approved by: Kita Desai M.D. on 03/30/2017 at 10:12 MRA ANGIOGRAM HEAD WITHOUT CONTRAST IMPRESSION: Patient motion degrades quality of visualization but within the constraints of this study no definite acute disease is found. Approved by: Dong Garcia M.D. on 03/30/2017 at 19:55 MRI BRAIN WITHOUT CONTRAST IMPRESSION: Moderate brain parenchymal atrophy, quality of visualization is quite limited by persistent patient motion during image acquisition. No stroke found, no mass seen, no obstructive hydrocephalus suspected. Dictated by: Dong Garcia M.D. on 03/30/2017 at 19:53 Assessment & Plan Mr. Pedro Barrera is an 86 year old gentleman with a past medical history of Hypertension on no medications, recent alcoholism and presumed dementia presenting to the [facility] ED by way of EMS when daughter, Sabina noticed patient was displaying global expressive aphasia, Stroke workup including MRI was negative. Pt appears to be closer to baseline which may be AOX1-2. 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 Active. - MR stroke protocol. Showed no concern for stroke - EKG reviewed, NSR. Tele showed no events. . - Echocardiogram is ordered and showed 65-70% ejection fraction, as well as lipid panel (chol= 172 triglycerides 86 LDL 106 HDL 48 and A1c 6.0. - initiated pravastatin 10 mg daily at bedtime. 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 He agrees with vitamin infusions, we appreciate his time and recommendations - Given B complex vit, IV thiamine infusions for total of 7 days. - Dysphagia diet with thin liquids are recommended. - Social work- pending placement [facility], likely d/c 04/11 TESSA, present on admit, active- likely pre-renal. Scr has fluctuated since admit. Pt has had Chlorthalidone added which may have contributed. Appears he has not been drinking water last couple days. - Encourage PO intake. - 04/09- held thiazide, Inc to Metoprolol 25 mg BID. - Will start IVF again. - Check Scr in AM and in 1 week. If stable can be d/cd Second-degree AV block reported a.m. of 04/03, resolved -- Patient experienced a brief episode of A. fib on 04/02, he was put on metoprolol 25 mg by mouth twice a day -- On 04/03 am, patient was reported to have few minutes of second-degree AV block -- Cardiology consulted, Dr. Whaley feels that this may be due to sleep cycle. - Metoprolol dose inc to 25mg BID on 04/09. Hypertension, chronic unknown level of control, active. -- Reviewed records from [facility], that daughter has brought in. Patient was apparently on hydrochlorothiazide valsartan combo pill 20 - 100 mg daily prior to arriving at the ED. It is unclear if he ever actually picked up the prescription and use the medication. - For blood pressure, initial regimen of Amlodipine 10mg daily, Metoprolol 12.5 mg BID, Chlorthalidone 25mg daily. - 04/09- held thiazide, Inc to Metoprolol 25 mg BID. - Check Scr in AM and in 1 week. . Atrial fibrillation with RVR, reported on 04/02 resolved -- Started metoprolol 12.5 mg twice a day, Metoprolol dose inc to 25mg BID on Recent history of Alcohol dependance. - Thiamine given. See plan above. - Was on CIWA protocol ordered. CIWA dc/d 04/05 as scores <3. - CD assessment with Case management. Prediabetes- Chronic, stable. - Hba1c of 6.0. No known hx of Diabetes. Pt has poor appetite so will hold off restricting diet. - Needs to follow up with a primary care physician in 3 months for repeat labs. Chronic conditions. Insomnia - Continue Melatonin due to confusion. Trazadone was held, can be restarted when appropriate. Acetaminophen for mild pain when necessary. Bowel regimen Senna and MiraLAX scheduled and PRN. Zofran when necessary for nausea and vomiting. High-risk medications: None Social: Daughter, Sabina, has provided [facility] paperwork. Several relatives attempted to call on behalf of patient's son, questions should be routed to Sabina per [facility] request. Dispo- - Social work- pending placement [facility], likely d/c 04/10 - Continue, pravastatin 10 mg daily at bedtime. 81 mg aspirin daily - Needs to follow up with a primary care physician in 1-2 weeks for repeat labs and further diabetes workup. - If can't follow up with previous primary doctor can make appointment at [facility], information provided. - Continue to take new medications added for Blood Pressure. - Dysphagia diet with thin liquids are recommended. - Encourage oral intake of fluids. Monitor intake/output. Recheck renal function for 2-3 days. VTE Prophylaxis: Sub-Q Heparin (Unfractionated) VTE Mechanical Devices: Venous Foot Pump Resuscitation Status: DNR/DNI:Do Not Resuscitate/Intubate Harsha Reece MD Apr 10, 2017 10:40
[2017-04-10] MEDS: 0.9% Sodium Chloride 1,000 ML IV SCH ×2 (10:50→20:54)
--- NOTE | 2017-04-10 11:06 | NUR ---
IVF/dc Per MD, dc on hold for pt to receive IVF. Placed a 20g IV in L FA, pt tolerated well. IVF NS currently infusing.
--- NOTE | 2017-04-10 12:26 | NUR ---
Social Work-readiness for discharge: Data:EMR Reviewed. Pt is on day 11 of hospitalization for CVA per H&P. ALEX updated by that pt is not medically stable anticipate tomorrow. SW updated Rocio at [facility], they are ready to accept whenever pt is medically stable. SW updated pt's daughter Sabina via phone and she is agreeable to plan. Daughter to pay privately at [facility]. Paperwork in the chart. SW will continue to follow. Assessment;Pt to benefit from SNF. Plan:Pt to discharge to [facility] private pay when medically stable. Paperwork in the chart. SW will continue to follow. PANCHO Crowder
--- NOTE | 2017-04-10 12:55 | NUR ---
SOMA bed Pt has been in SOMA bed >24 hours unzipped with no attempt to get OOB at this time. Swapped SOMA bed out for a regular bed this morning.
[2017-04-10 13:21] VITALS: BP 102/69; PULSE 76; RESP 16; O2SAT 99
--- NOTE | 2017-04-10 17:43 | NUR ---
Visitors Pt's dtr, Roula in room this afternoon. Verified that pt was still a privacy patient and online community manager phoned Sabina GUTIERREZ to verify if Roula is able to visit with pt. Per BRENDA, Roula can visit today, no information is to be released to her and after Roula leaves, no visitors allowed. This RN and online community manager went to pt's room and Roula had left. Moments later, son Pedro Huynh and a male family friend arrived and attempted to visit pt. airport manager again reached Sabina GUTIERREZ and was told that pt can have visitors this evening only, Roula and Pedro Huynh but after this evening, NO visitors.
--- NOTE | 2017-04-10 18:38 | NUR ---
Behavior Pt has remained pleasant, cooperative with all cares. No attempts to get OOB or self transfer. Pt has been using call light appropriately. Remains pleasantly confused, easily redirected. Bed in lowest, locked position and call light in reach.
[2017-04-10 20:03] VITALS: BP 109/63; PULSE 72; RESP 18; O2SAT 99
[2017-04-11] MEDS: Heparin 5,000 Unit/mL Inj SUBQ SCH ×2 (00:31→08:50)
[2017-04-11] MEDS: 0.9% Sodium Chloride 1,000 ML IV SCH (04:06)
[2017-04-11 06:15] VITALS: BP 112/67; PULSE 68; RESP 16; O2SAT 99
--- NOTE | 2017-04-11 06:17 | NUR ---
mentation Pt was telling this RN that he's hospitalized because of his drinking and he's glad he quit. A&O to self only, thinks it's April. Using urinal in bed, but dribbles. 2 Person minimal assist to the bathroom. had a small formed BM. gait unsteady. bed alarm on for safety. Sitter at bedside.
[2017-04-11] MEDS: Multivit-Miner-Folic Acid-Iron Tablet PO SCH (08:50)
[2017-04-11] MEDS: Vitamin B Complex/Vit C Tablet PO SCH (08:51)
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
[2017-04-11] MEDS ORDERED: NAM10 PO (09:12)
[2017-04-11] MEDS ORDERED: METO25TA6 PO (09:12)
[2017-04-11] MEDS ORDERED: PRA20 PO (09:12)
[2017-04-11] MEDS ORDERED: AMLO5TAB2 PO (09:12)
[2017-04-11] MEDS ORDERED: MELA5TAB14 PO (09:12)
--- NOTE | 2017-04-11 09:13 | PCM.DIMED ---
Discharge Instructions Date of Service Apr 11, 2017 Dates of Hospitalization Mar 30, 2017 at 13:48 Discharge Diagnosis Discharge Diagnosis [place] Encephalopathy, present on admission. Active. TESSA, present on admit, improving- likely pre-renal. Scr has fluctuated since admit. Downtrending at time of discharge from 1.6 to 1.4. Pt has had Chlorthalidone added which may have contributed. Appears he has not been drinking water last couple days. Second-degree AV block reported a.m. of 04/03, resolved Hypertension, chronic unknown level of control, active. Atrial fibrillation with RVR, reported on 04/02 resolved Recent history of Alcohol dependance, stable. Prediabetes- Chronic, stable. Insomnia Medication Instructions Additional med instructions - Continue, pravastatin 10 mg daily at bedtime. 81 mg aspirin daily - Continue to take new medications added for Blood Pressure of Amlodipine 10mg daily, Metoprolol 25 mg BID. Consider adding Valsartan when renal function improves and need better control. - Trazadone for insomnia was held, can be restarted when appropriate. Diet Discharge Diet: Other (Dysphagia diet with thin liquids are recommended.) Activity Discharge Activity: No restrictions Patient Instructions Patient Instructions - Dysphagia diet with thin liquids are recommended. - Encourage oral intake of fluids as patient forgets to drink water. Monitor intake/output daily. Recheck renal function for 2-3 days until back to baseline of Scr-1. Follow-up plan - Needs to follow up with a primary care physician in 1-2 weeks for repeat labs and further diabetes workup. - If can't follow up with previous primary doctor can make appointment at [facility], information provided. Follow-up Provider: [facility] Follow-up with PCP in: 2 weeks Harsha Reece MD Apr 11, 2017 09:13
[2017-04-11 10:32] VITALS: BP 121/63; PULSE 66; RESP 16; O2SAT 99
--- NOTE | 2017-04-11 10:46 | NUR ---
Social Work-discharge: Data:EMR reviewed. 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 Pt is medically stable for discharge. ALEX spoke with Rocio at [facility] who confirms they are able to accept pt today. Rocio states that layse Muhammad came in yesterday and paid the money for pt's stay. Rocio arranged transport for 1100. ALEX placed a call to alyse Muhammad and left a message informing her of discharge time. ALEX faxed orders and created packet. RN,UC,pt/family, and [facility] all updated and agreeable to plan. Assessment:Pt who would benefit from SNF. Plan:Pt to discharge to [facility] today- private pay via cabulance at 1100. ALEX left message with alyse Muhammad informing her of discharge time. ALEX faxed orders and created packet. RN,UC,pt/family, and [facility] all updated and agreeable to plan. PANCHO Crowder
--- NOTE | 2017-04-11 11:11 | NUR ---
Discharge Pt d/c to [facility] at 1107 via by transportation from receiving facility. Pt denied pain. VSS. IV d/cd prior to leaving. All personal belongings left with pt. Pt denied having questions. Report called to receiving nurse, Joceline, at [phone]
== END 2017-04-11 11:07 | DRG 641 ==
LOC: EDBD 10:21 → SED 10:21 → OBSVTOIN 13:48 → MPC 13:48
PROVIDERS: ADMIT Family Medicine; ATTEND Family Medicine
DX: E51.2 Wernicke's encephalopathy (principal); N17.9 Acute kidney failure, unspecified; F10.20 Alcohol dependence, uncomplicated; R29.703 NIHSS score 3; Z96.642 Presence of left artificial hip joint; I10 Essential (primary) hypertension; I44.1 Atrioventricular block, second degree; I48.91 Unspecified atrial fibrillation; R73.03 Prediabetes; G47.00 Insomnia, unspecified